=== PATIENT | male | born 1980 | race Hispanic/Latino ===

== ENCOUNTER 2018-02-17 11:30 | Inpatient (IN) | payer SELFPAY ==
[2018-02-17] MEDS ORDERED: ONDANSETRON 4 MG/2 ML VIAL ONE ×2 (11:59→16:21)
[2018-02-17] MEDS ORDERED: NA CHLORIDE 0.9% 1,000 ML ONE ×2 (12:00→14:14)
[2018-02-17] MEDS ORDERED: FAMOTIDINE 20 MG/2 ML VIAL IV ONE (12:00)
[2018-02-17] MEDS ORDERED: ACETAMINOPHEN 500 MG TAB ONE (12:13)
[2018-02-17 12:15] LABS: Absolute Lymphocytes (CBC) 0.9 K/uL (0.7-4.9); Absolute Monocytes 1.1 K/uL (0.1-1.3); Absolute Neutrophil 13.4 K/uL (1.8-8.0); Basophils % 0.2 % (0-1.3); Eosinophils % 0.2 % (0-4.4); Hematocrit 43.9 % (39.6-49.0); Lymphocytes % 5.8 % (15.3-44.8); MCH 30.1 pg (27.0-35.0); MCV 85.4 fL (80-100); MPV 9.1 fL (7.6-11.3); RBC Red Blood Cell Count 5.14 M/uL (4.33-5.43)
[2018-02-17 12:48] LABS: Albumin 3.5 g/dL (3.4-5.0); Bilirubin Direct 0.4 mg/dL (0-0.2); Magnesium 2.1 mg/dL (1.8-2.4); Potassium 3.5 mmol/L (3.5-5.1); Protein, Total 8.5 g/dL (6.4-8.2)
[2018-02-17 12:53] LABS: Platelet Estimate ADEQ
--- NOTE | 2018-02-17 12:53 | RAD REPORT ---
EXAM DESCRIPTION: CT - Abdomen Pelvis W Contrast - 02/17/2018 12:26 pm CLINICAL HISTORY: Chills, fever, body aches, nausea vomiting and diarrhea COMPARISON: CT abdomen and pelvis February 2012 TECHNIQUE: Biphasic, helical CT imaging of the abdomen and pelvis was performed following 100 ml non -ionic IV contrast. Oral contrast was given. All CT scans are performed using dose optimization technique as appropriate and may include automated exposure control or mA/KV adjustment according to patient size. FINDINGS: Lung base findings are detailed on separate CT chest report The liver, spleen, and pancreas show no focal findings. Liver shows diffuse fatty infiltration patter n. Gallbladder and biliary tree are normal. Symmetric renal function is seen with no hydronephrosis or suspicious renal mass. No pyelonephritis o r acute renal parenchymal process. No adrenal gland abnormality. Partially filled urinary bladder merrill ws no suspicious finding. Prostate gland and seminal vesicles within normal limits. No gastric dilatation or gastric wall thickening. No dilated large or small bowel. The appendix is no rmal. Nonspecific mild enteritis would still be possible. No free air, free fluid or inflammatory st randing. No bulky lymphadenopathy or mass. No omental thickening. Approximately 3 centimeter oval ma ss in the right inguinal canal is present possibly an undescended right testicle or reactive lymph no de. This is not clearly different from 2012. No suspicious bony findings. IMPRESSION: No appendicitis or acute GI process identifiable. Nonspecific enteritis can be present a nd occult on CT imaging. Fatty infiltration of the liver. Approximately 3 centimeter right inguinal canal mass has not clearly changed from 2012. This may repr esent an undescended testicle. Lung base findings are separately detailed in CT chest report.
[2018-02-17 12:54] LABS: Blood Morphology Comment NOT SEEN (NOT SEEN)
--- NOTE | 2018-02-17 12:57 | RAD REPORT ---
EXAM DESCRIPTION: CT - Thorax Wo Con - 02/17/2018 12:38 pm CLINICAL HISTORY: Abnormal chest film, abnormal CT examination COMPARISON: Portable chest February 17, CT abdomen and pelvis same date TECHNIQUE: Axial 5 mm thick images of the chest were obtained without IV contrast. There is remnant contrast within the circulation from the earlier contrast CT abdomen and pelvis study. All CT scans are performed using dose optimization technique as appropriate and may include automated exposure control or mA/KV adjustment according to patient size. FINDINGS: A moderately large area of consolidation is present involving a significant portion of the right lower lobe. Air bronchograms are present. Finding is typical for bacterial pneumonia. No cavit ation. No other area of consolidation. In the posterior right lower lobe (image 33/65) there is a 7 m illimeter noncalcified pulmonary nodule. A 6 millimeter pulmonary nodule is present anterior right rusty ng base near the minor fissure. No pleural thickening or pleural effusion. No pneumothorax. Fullness of the right hilum is believed to be reactive lymphadenopathy. Small subcarinal lymph node a lso believed be reactive. No gross aortic or pulmonary artery finding suspected. Assessment is limit ed in the absence of IV contrast. No pericardial effusion. No chest wall mass or abnormal axillary lymphadenopathy. IMPRESSION: Moderately large right lower lobe pneumonia. No cavitation or other complicating factor. Two 6-7 mm pulmonary nodules are present in the right lung field. The right lung mass has very typic al appearance for pneumonia. Malignant risk for this patient is likely very low. If there are clinica l or patient concerns, repeat CT chest examination in 6 months could be performed to monitor the pulm onary nodules.
--- NOTE | 2018-02-17 13:02 | RAD REPORT ---
EXAM DESCRIPTION: RAD - Chest Single View - 02/17/2018 12:10 pm CLINICAL HISTORY: Cough, fever COMPARISON: None. TECHNIQUE: AP portable chest image was obtained 1206 hours . FINDINGS: Lung volumes are low. Masslike density is present superimposed on the right hilum. With a history of fever and body aches, this is most likely pneumonia. Malignancy would not be expected in a patient this age. No cavitation. No failure or volume overload. Heart and vasculature are normal. No measurable pleural effusion and no pneumothorax. No acute bony abnormality seen. No acute aortic fin dings suspected. IMPRESSION: Right midlung field pneumonia.
[2018-02-17] MEDS ORDERED: KETOROLAC 30 MG/ML INJ ONE (13:07)
[2018-02-17] MEDS ORDERED: CEFTRIAXONE/SWI 1gm 1 GM/10 ML SYR ONE ×2 (13:35→14:38)
[2018-02-17] MEDS ORDERED: AZITHROMYCIN 500 MG/250 ML BAG ONE (13:35)
[2018-02-17 14:59] LABS: Urine Blood 1+ (NEG); Urine Glucose NEGATIVE (NEG); Urine Protein 1+ (NEG); Urine Specific Gravity <1.005 (1.005-1.030); Urine pH 5.5 (5.0-7.0)
--- NOTE | 2018-02-17 15:24 | ER ---
Nurse's Notes [facility] Name: All Meyer Age: 38 yrs Sex: Male : 1980 Arrival Date: 02/17/2018 Time: 11:32 Bed 18 Private MD: Diagnosis: Pneumonia due to other specified bacteria-Right Middle Lobe Presentation: 02/17 11:35 Presenting complaint: Patient states: N/V/D, chills, fever, body aches since . la1 Transition of care: patient was not received from another setting of care. Onset of symptoms was February 17, 2018. Risk Assessment: Do you want to hurt yourself or someone else? Patient reports no desire to harm self or others. Initial Sepsis Screen: Does the patient meet any 2 criteria? Temp <36.0*C (96.8*F)) or > 38.3*C (100.9*F). HR > 90 bpm. Does the patient have a suspected source of infection? No. Patient's initial sepsis screen is negative. Care prior to arrival: None. 11:35 Method Of Arrival: Ambulatory la1 11:35 Acuity: DEYA 3 la1 Historical: - Allergies: 11:36 No Known Allergies; la1 - Home Meds: 11:36 None [Active]; la1 - PMHx: 11:36 None; la1 - PSHx: 11:36 None; la1 - Immunization history:: Adult Immunizations up to date. - Social history:: Smoking status: Patient uses tobacco products, denies chronic smoking, but will smoke occasionally. - Ebola Screening: : No symptoms or risks identified at this time. Screenin:00 Abuse screen: Denies threats or abuse. Nutritional screening: Has had N/V for 3 or more em days. Tuberculosis screening: No symptoms or risk factors identified. Fall Risk None identified. Assessment: 12:00 General: Appears in no apparent distress. uncomfortable, Behavior is calm, cooperative. em Pain: Complains of pain in abdomen and head Pain currently is 8 out of 10 on a pain scale. Neuro: Level of Consciousness is awake, alert, obeys commands, Oriented to person, place, time, situation. Cardiovascular: Denies chest pain, Capillary refill < 3 seconds Patient's skin is warm and dry. Respiratory: Airway is patent Respiratory effort is even, unlabored, Respiratory pattern is regular, symmetrical. GI: Abdomen is round non-distended, Bowel sounds present X 4 quads. Abd is soft X 4 quads Abdomen is tender to palpation X 4 quads. Reports diarrhea, bloody stool, nausea, vomiting. : No signs and/or symptoms were reported regarding the genitourinary system. Derm: Skin is intact, Skin is pink, warm \T\ dry. Musculoskeletal: Capillary refill < 3 seconds, Range of motion: intact in all extremities. 12:05 General: The previous assessment is accurate, call light remains within reach. at ss bedside. . 12:20 Reassessment: pt wheeled to CT via wheelchair. em 13:00 Reassessment: Patient appears in no apparent distress at this time. Patient and/or em family updated on plan of care and expected duration. Pain level reassessed. Patient is alert, oriented x 3, equal unlabored respirations, skin warm/dry/pink. pt request something for pain, rates pain 9/10, provider notified. 14:30 Reassessment: Pt reports that pain has decreased after Toradol administration. Pt ss ambulated with steady gait to give urine specimen. still remains at bedside. Call light within reach. Awaiting antibiotics, IV fluids and disposition status. 15:29 Reassessment: Patient appears in no apparent distress at this time. Patient and/or em family updated on plan of care and expected duration. Pain level reassessed. Patient is alert, oriented x 3, equal unlabored respirations, skin warm/dry/pink. Dr. Pfeiffer at bedside, pending room assignment. 16:15 Reassessment: Patient appears in no apparent distress at this time. Patient and/or em family updated on plan of care and expected duration. Pain level reassessed. Patient is alert, oriented x 3, equal unlabored respirations, skin warm/dry/pink. rates pain 7/10, provider notified, new medication orders received. Vital Signs: 11:36 BP 124 / 73; Pulse 109; Resp 22; Temp 101.0; Pulse Ox 98% on R/A; Weight 113.4 kg; la1 Height 5 ft. 7 in. (170.18 cm); 13:00 BP 145 / 55; Pulse 88; Resp 22; Pulse Ox 98% on R/A; Pain 9/10; em 14:00 BP 114 / 56; Pulse 64; Resp 20; Temp 99.6(O); Pulse Ox 96% on R/A; Pain 0/10; em 15:30 BP 122 / 66; Pulse 65; Resp 19; Pulse Ox 96% on R/A; Pain 5/10; em 16:25 BP 118 / 67; Pulse 80; Resp 20; Temp 98.5(O); Pulse Ox 99% on R/A; Pain 7/10; em 11:36 Body Mass Index 39.16 (113.40 kg, 170.18 cm) la1 ED Course: 11:32 Patient arrived in ED. as 11:33 Ignacio Burt PA is PHCP. cp 11:33 Lev King MD is Attending Physician. cp 11:36 Triage completed. la1 11:37 Arm band placed on left wrist. la1 11:50 Mir Zapata LVN is Primary Nurse. em 12:00 Patient has correct armband on for positive identification. Placed in gown. Bed in low em position. Call light in reach. Adult w/ patient. 12:00 Initial lab(s) drawn, by me, sent to lab. Inserted saline lock: 20 gauge in right em antecubital area, using aseptic technique. Blood collected. 12:10 XRAY Chest (1 view) In Process Unspecified. EDMS 12:[address] via wheelchair. cw1 12:25 CT completed. Patient moved back from CT. cw1 12:27 CT Abd/Pelvis - W/Contrast In Process Unspecified. EDMS 12:38 Thorax Wo Con In Process Unspecified. EDMS 15:22 Deonte Pfeiffer DO is Hospitalizing Provider. cp 15:49 No provider procedures requiring assistance completed. em 16:26 Patient admitted, IV remains in place. em Administered Medications: 12:04 Drug: Tylenol 1000 mg Route: PO; la1 15:07 Follow up: Response: No adverse reaction; Temperature is decreased em 12:05 Drug: Zofran 4 mg Route: IVP; Site: right antecubital; la1 13:30 Follow up: Response: Nausea is decreased em 12:05 Drug: Pepcid 20 mg Route: IVP; Site: right antecubital; la1 13:30 Follow up: Response: No adverse reaction em 12:05 Drug: NS 0.9% 1000 ml Route: IV; Rate: 1 bolus; Site: right antecubital; la1 13:30 Follow up: IV Status: Completed infusion; IV Intake: 1000ml em 13:10 Drug: TORadol 30 mg Route: IVP; Site: right antecubital; ss 14:28 Follow up: Response: No adverse reaction; Pain is decreased ss 14:27 Not Given (Other Intervention Used): Rocephin - (cefTRIAXone) 2 grams IVPB once over 30 ss mins; (mix in 50 mL NS) start after obtaining blood cultures 14:32 Drug: NS 0.9% 1000 ml Route: IV; Rate: 1 bolus; Site: right antecubital; ss 16:00 Follow up: IV Status: Completed infusion; IV Intake: 1000ml em 14:38 Drug: Rocephin 2 grams Route: IV; Rate: calculated rate; Site: right antecubital; ss 15:32 Follow up: Response: No adverse reaction; IV Status: Completed infusion; IV Intake: 20mlem 14:43 Drug: Zithromax 500 mg Route: IVPB; Infused Over: 1 hrs; Site: right antecubital; ss 16:00 Follow up: Response: No adverse reaction; IV Status: Completed infusion; IV Intake: em 250ml 16:21 Drug: Zofran 4 mg Route: IVP; Site: right forearm; em 16:29 Follow up: Response: Other; medication administered, pt taken to the floor em 16:22 Drug: morphine 4 mg Route: IVP; Site: right antecubital; ss 16:30 Follow up: Response: Other; medication administered, pt taken to the floor em Intake: 13:30 IV: 1000ml; Total: 1000ml. em 15:32 IV: 20ml; Total: 1020ml. em 16:00 IV: 250ml; Total: 1270ml. em 16:00 IV: 1000ml; Total: 2270ml. em Outcome: 15:23 Decision to Hospitalize by Provider. cp 16:26 Admitted to Med/surg accompanied by tech, family with patient, via wheelchair, room em 229, with chart, Report called to BRYAN Saenz 16:26 Condition: good 16:26 Instructed on the need for admit, Demonstrated understanding of instructions. 16:34 Patient left the ED. em Signatures: Dispatcher [employer] EDMS Mir Zapata, [employer] SUPERINTENDENT [employer] SUPERINTENDENT em Isela Lindsey Shelby, RN RN Marbella Parker cw1 Jordan Lauren RN RN la1 Ignacio Burt PA PA cp Corrections: (The following items were deleted from the chart) 12:24 11:35 Initial Sepsis Screen: Does the patient meet any 2 criteria? Temp <36.0*C em (96.8*F)) or > 38.3*C (100.9*F). HR > 90 bpm. Does the patient have a suspected source of infection? No. Patient's initial sepsis screen is negative. la1
--- NOTE | 2018-02-17 15:24 | EDPHYS ---
Physician Documentation [facility] Name: All Meyer Age: 38 yrs Sex: Male : 1980 Arrival Date: 02/17/2018 Time: 11:32 Bed 18 Private MD: ED Physician Lev King HPI: 02/17 11:45 This 38 yrs old Male presents to ER via Ambulatory with complaints of cp Vomiting, Fever. 11:45 The patient presents to the emergency department with nausea, that is moderate, cp vomiting, that is intermittent, diarrhea, that is intermittent, abdominal pain. 11:45 Onset: The symptoms/episode began/occurred 3 day(s) ago. Associated signs and symptoms: cp Pertinent positives: fever, cough. Severity of symptoms: in the emergency department the symptoms are unchanged. Historical: - Allergies: 11:36 No Known Allergies; la1 - Home Meds: 11:36 None [Active]; la1 - PMHx: 11:36 None; la1 - PSHx: 11:36 None; la1 - Immunization history:: Adult Immunizations up to date. - Social history:: Smoking status: Patient uses tobacco products, denies chronic smoking, but will smoke occasionally. - Ebola Screening: : No symptoms or risks identified at this time. ROS: 11:50 Constitutional: Positive for fever. cp 11:50 Eyes: Negative for injury, pain, redness, and discharge. cp 11:50 ENT: Positive for sore throat, Negative for drainage from ear(s), ear pain, difficulty swallowing, difficulty handling secretions. 11:50 Cardiovascular: Negative for chest pain. 11:50 Respiratory: Positive for cough, Negative for shortness of breath, wheezing. 11:50 Abdomen/GI: Positive for abdominal pain, nausea, vomiting, and diarrhea, Negative for constipation, black/tarry stool, rectal bleeding. 11:50 : Negative for urinary symptoms. 11:50 Skin: Negative for cellulitis, rash. 11:50 Neuro: Negative for altered mental status, headache, syncope, near syncope. 11:50 All other systems are negative. Exam: 11:52 Constitutional: The patient appears in no acute distress, alert, awake, cp non-diaphoretic, well developed, well nourished, appears ill 11:52 Head/Face: Normocephalic, atraumatic. Eyes: Pupils equal round and reactive to light, cp extra-ocular motions intact. Lids and lashes normal. Conjunctiva and sclera are non-icteric and not injected. Cornea within normal limits. Periorbital areas with no swelling, redness, or edema. 11:52 ENT: External ear(s): are unremarkable, Ear canal(s): are normal, clear, TM's: bulging, is not appreciated, bilaterally, dullness, bilaterally, erythema, is not appreciated, bilaterally, Nose: is normal, Mouth: Lips: moist, Oral mucosa: moist, Posterior pharynx: Airway: no evidence of obstruction, patent, Tonsils: no enlargement, no exudate, Uvula: midline, swelling, is not appreciated, erythema, that is mild, exudate, is not appreciated. 11:52 Neck: External neck: is normal, ROM/movement: is normal, is supple, without pain, no range of motions limitations, no meningismus, no nuchal rigidity, Lymph nodes: no appreciated lymphadenopathy. 11:52 Chest/axilla: Inspection: normal, Palpation: is normal, no crepitus, no tenderness. 11:52 Cardiovascular: Rate: tachycardic, Rhythm: regular, Edema: is not appreciated, JVD: is not appreciated. 11:52 Respiratory: the patient does not display signs of respiratory distress, Respirations: labored breathing, is not present, intercostal retractions, are absent, shallow respirations, that is mild, tachypnea, is not appreciated, Breath sounds: decreased breath sounds, are not appreciated, stridor, is not appreciated, + upper airway congestion. wheezing: is not appreciated. 11:52 Abdomen/GI: Inspection: abdomen appears normal, Bowel sounds: active, all quadrants, Palpation: soft, in all quadrants, moderate abdominal tenderness, in the abdomen diffusely, rebound tenderness, is not appreciated, voluntary guarding, is elicited in the right upper quadrant and left lower quadrant, involuntary guarding, is not appreciated. 11:52 Back: CVA tenderness, is absent. 11:52 Skin: cellulitis, is not appreciated, no rash present. 11:52 Neuro: Orientation: to person, place \T\ time. Mentation: is normal, Cerebellar function: is grossly normal, Motor: moves all fours, strength is normal, Sensation: is normal. 16:00 : Male external genitalia: tenderness, is not appreciated, right testicle absent. Vital Signs: 11:36 BP 124 / 73; Pulse 109; Resp 22; Temp 101.0; Pulse Ox 98% on R/A; Weight 113.4 kg; la1 Height 5 ft. 7 in. (170.18 cm); 13:00 BP 145 / 55; Pulse 88; Resp 22; Pulse Ox 98% on R/A; Pain 9/10; em 14:00 BP 114 / 56; Pulse 64; Resp 20; Temp 99.6(O); Pulse Ox 96% on R/A; Pain 0/10; em 15:30 BP 122 / 66; Pulse 65; Resp 19; Pulse Ox 96% on R/A; Pain 5/10; em 16:25 BP 118 / 67; Pulse 80; Resp 20; Temp 98.5(O); Pulse Ox 99% on R/A; Pain 7/10; em 11:36 Body Mass Index 39.16 (113.40 kg, 170.18 cm) la1 MDM: 11:40 Patient medically screened. 15:05 Data reviewed: vital signs, nurses notes, lab test result(s), radiologic studies, CT cp scan, plain films. 15:05 Test interpretation: by ED physician or midlevel provider: plain radiologic studies. 02/17 11:37 Order name: Strep; Complete Time: 13:03 [facility] 02/17 11:37 Order name: Flu; Complete Time: 13:03 [facility] 02/17 11:48 Order name: Basic Metabolic Panel; Complete Time: 13:03 02/17 13:03 Interpretation: Normal except: NA 133; GLUC 141; GFR 69. 02/17 11:48 Order name: CBC with Diff; Complete Time: 13:03 02/17 13:03 Interpretation: Normal except: WBC 15.5; JOHN% 86.8; LYM% 5.8; NEUT A 13.4. 02/17 11:48 Order name: Creatinine for Radiology; Complete Time: 13:03 02/17 11:48 Order name: Hepatic Function; Complete Time: 13:03 02/17 13:04 Interpretation: Normal except: BILID 0.4; TP 8.5; GLOB 5.0; A/G 0.7. 02/17 11:48 Order name: Lipase; Complete Time: 13:03 cp 02/17 11:48 Order name: Magnesium; Complete Time: 13:03 cp 02/17 11:49 Order name: [facility] Screen Profile; Complete Time: 13:03 cp 02/17 12:06 Order name: Throat Culture EDMS 02/17 12:54 Order name: Manual Differential; Complete Time: 13:03 EDMS 02/17 13:06 Order name: Blood Culture* cp 02/17 13:06 Order name: Lactate; Complete Time: 14:59 cp 02/17 13:06 Order name: Procalcitonin; Complete Time: 14:59 cp 02/17 15:00 Interpretation: Abnormal: Procalcitonin 0.74. 02/17 14:29 Order name: Urine Dipstick--Ancillary (enter results) la1 02/17 14:30 Order name: Urine Dipstick-Ancillary; Complete Time: 15:06 EDMS 02/17 15:43 Order name: T4 Free EDMS 02/17 15:43 Order name: Thyroid Stimulating Hormone EDMS 02/17 15:43 Order name: Urinalysis EDMS 02/17 15:43 Order name: Basic Metabolic Panel EDMS 02/17 15:43 Order name: Basic Metabolic Panel EDMS 02/17 15:43 Order name: Basic Metabolic Panel EDMS 02/17 15:43 Order name: Basic Metabolic Panel EDMS 02/17 15:43 Order name: CBC with Automated Diff EDMS 02/17 15:43 Order name: CBC with Automated Diff EDMS 02/17 15:43 Order name: CBC with Automated Diff EDMS 02/17 15:43 Order name: CBC with Automated Diff EDMS 02/17 15:43 Order name: Magnesium EDMS 02/17 15:43 Order name: Magnesium EDMS 02/17 15:43 Order name: Magnesium EDMS 02/17 11:48 Order name: IV Saline Lock; Complete Time: 12:06 02/17 11:48 Order name: Labs collected and sent; Complete Time: 12:06 cp 02/17 11:48 Order name: Urine Dipstick-Ancillary (obtain specimen); Complete Time: 14:28 cp 02/17 11:48 Order name: CT Abd/Pelvis - W/Contrast; Complete Time: 13:03 02/17 11:49 Order name: XRAY Chest (1 view); Complete Time: 13:03 cp 02/17 12:33 Order name: Thorax Wo Con; Complete Time: 13:03 EDMS 02/17 15:00 Order name: PO challenge; Complete Time: 15:41 cp 02/17 15:43 Order name: Heart Healthy EDMS 02/17 15:43 Order name: Magnesium EDMS 02/17 15:43 Order name: Chest Pa And Lat (2 Views) EDMS 02/17 15:43 Order name: Chest Pa And Lat (2 Views) EDMS Administered Medications: 12:04 Drug: Tylenol 1000 mg Route: PO; la1 15:07 Follow up: Response: No adverse reaction; Temperature is decreased em 12:05 Drug: Zofran 4 mg Route: IVP; Site: right antecubital; la1 13:30 Follow up: Response: Nausea is decreased em 12:05 Drug: Pepcid 20 mg Route: IVP; Site: right antecubital; la1 13:30 Follow up: Response: No adverse reaction em 12:05 Drug: NS 0.9% 1000 ml Route: IV; Rate: 1 bolus; Site: right antecubital; la1 13:30 Follow up: IV Status: Completed infusion; IV Intake: 1000ml em 13:10 Drug: TORadol 30 mg Route: IVP; Site: right antecubital; ss 14:28 Follow up: Response: No adverse reaction; Pain is decreased ss 14:27 Not Given (Other Intervention Used): Rocephin - (cefTRIAXone) 2 grams IVPB once over 30 ss mins; (mix in 50 mL NS) start after obtaining blood cultures 14:32 Drug: NS 0.9% 1000 ml Route: IV; Rate: 1 bolus; Site: right antecubital; ss 16:00 Follow up: IV Status: Completed infusion; IV Intake: 1000ml em 14:38 Drug: Rocephin 2 grams Route: IV; Rate: calculated rate; Site: right antecubital; ss 15:32 Follow up: Response: No adverse reaction; IV Status: Completed infusion; IV Intake: 20mlem 14:43 Drug: Zithromax 500 mg Route: IVPB; Infused Over: 1 hrs; Site: right antecubital; ss 16:00 Follow up: Response: No adverse reaction; IV Status: Completed infusion; IV Intake: em 250ml 16:21 Drug: Zofran 4 mg Route: IVP; Site: right forearm; em 16:29 Follow up: Response: Other; medication administered, pt taken to the floor em 16:22 Drug: morphine 4 mg Route: IVP; Site: right antecubital; ss 16:30 Follow up: Response: Other; medication administered, pt taken to the floor em Disposition: 16:41 Co-signature as Attending Physician, Lev King MD I agree with the assessment and kdr plan of care. Disposition: 02/17/18 15:23 Hospitalization ordered by Deonte Pfeiffer for Observation. Preliminary diagnosis is Pneumonia due to other specified bacteria - Right Middle Lobe. - Bed requested for Telemetry/MedSurg (Inpatient). - Status is Observation. em - Condition is Stable. - Problem is new. - Symptoms have improved. UTI on Admission? No Signatures: Dispatcher [employer] Raya Montanez RN RN dw Lev King MD MD [facility] Mir Zapata, JACKER JACKER em Nellie Mcgovern RN RN Jordan Lauren RN RN la1 Ignacio Burt PA PA cp Corrections: (The following items were deleted from the chart) 15:41 15:23 Hospitalization Ordered by Deonte Pfeiffer DO for Inpatient Admission. Preliminary cp diagnosis is Pneumonia due to other specified bacteria - Right Middle Lobe. Bed requested for Telemetry/MedSurg (Inpatient). Status is Inpatient Admission. Condition is Stable. Problem is new. Symptoms have improved. UTI on Admission? No. cp 15:59 15:41 02/17/2018 15:23 Hospitalization Ordered by Deonte Pfeiffer DO for Observation. dw Preliminary diagnosis is Pneumonia due to other specified bacteria - Right Middle Lobe. Bed requested for Telemetry/MedSurg (Inpatient). Status is Observation. Condition is Stable. Problem is new. Symptoms have improved. UTI on Admission? No. cp 16:34 15:59 02/17/2018 15:23 Hospitalization Ordered by Deonte Pfeiffer DO for Observation. em Preliminary diagnosis is Pneumonia due to other specified bacteria - Right Middle Lobe. Bed requested for Telemetry/MedSurg (Inpatient). Status is Observation. Condition is Stable. Problem is new. Symptoms have improved. UTI on Admission? No. dw
[2018-02-17] MEDS ORDERED: ALBUTEROL 2.5 MG/3 ML NEB SOL NEB PRN (15:36)
[2018-02-17] MEDS ORDERED: BENZONATATE 100 MG CAP PO PRN (15:36)
[2018-02-17] MEDS ORDERED: ONDANSETRON 4 MG/2 ML VIAL IV PRN (15:36)
[2018-02-17] MEDS ORDERED: IPRATROPIUM BROM 0.5MG/2.5ML NEB PRN (15:36)
--- NOTE | 2018-02-17 15:51 | P.HP ---
Certification for Inpatient Patient admitted to: Observation With expected LOS: <2 Midnights Patient will require the following post-hospital care: None Practitioner: I am a practitioner with admitting privileges, knowledge of patient current condition, hospital course, and medical plan of care. Services: Services provided to patient in accordance with Admission requirements found in Title 42 Section 412.3 of the Code of Federal Regulations Patient History Date of Service: 02/17/18 Primary Care Provider: None Reason for admission: Cough, shortness of breath History of Present Illness: 38-year-old male presented to the emergency room with cough, shortness of breath and fatigue. The patient reports that he had cough, congestion, shortness of breath since . He still went to work. He continued to have more symptoms of shortness of breath. Over the last day he has been having fever, chills, body shakes. He has felt very tired. He decided to come to the emergency room for evaluation. In the ER patient evaluated. Patient had a fever in the emergency room he was slightly tachycardic. White count elevated at 15.5. Sodium 133, BUN of 14, creatinine 1.2 with a GFR of 69. Pro calcitonin 0.74 with a lactic acid within normal range. Urinalysis unremarkable. Strep test negative. Influenza test negative. Oxygen saturations around 99%. CT scan shows moderate to large to right lower lobe pneumonia. 2- 6 cm pulmonary nodules are present in the right lung field. This is likely typical for pneumonia. CT abdomen shows fatty liver. 3 cm right inguinal mass likely undescended testicle noted. Patient was treating emergency room. Patient admitted for further evaluation. When I saw the patient ER, he appeared comfortable. Patient reports history of tobacco use and occasional alcohol use. He has no other major medical problems. He has been working 6 over the last couple of days. Allergies No Known Allergies Allergy (Unverified 12/14/11 02:02) Home medications list reviewed: Yes - Past Medical/Surgical History Diabetic: No -: Tobacco use -: Alcohol use Past Surgical History: Patient denies surgical history Psychosocial/ Personal History: He is . Has 3 children. 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 - Family History Mother -: Diabetes, Kidney disease - Social History Smoking Status: Light Tobacco smoker (1-9 cigarettes/day) Counseled patient to stop smoking for: less than 10 minutes Smoking therapy provided: Yes Patient receptive to therapy: Yes Alcohol use: Yes CD- Drugs: No Caffeine use: No Place of Residence: Home Review of Systems General: Fever, Chills, Weakness, Malaise, As per HPI Eyes: Unremarkable ENT: Nose Congestion, As per HPI Respiratory: Cough, Shortness of Breath, SOB with Excertion, As per HPI Cardiovascular: Unremarkable Gastrointestinal: Nausea, As per HPI Genitourinary: Unremarkable Musculoskeletal: Back Pain, As per HPI Integumentary: Unremarkable Neurological: Unremarkable Lymphatics: Unremarkable Physical Examination - Physical Exam General: Alert, In no apparent distress, Oriented x3, Cooperative HEENT: Atraumatic, Normocephalic, PERRLA, Other (Nasal congestion noted), EOMI Neck: Supple, No Thyromegaly Respiratory: Crackles/rales (Crackles to the right base) Cardiovascular: Regular rate/rhythm Gastrointestinal: Normal bowel sounds, Soft and benign, Non-distended, No tenderness, No masses, No rebound, No guarding Musculoskeletal: No erythema, No tenderness, No warmth Integumentary: No tenderness/swelling, No erythema, No warmth, No cyanosis Neurological: Normal speech, Normal strength at 5/5 x4 extr, Normal tone, Normal affect - Studies Laboratory Data (last 24 hrs) 02/17/18 12:00: Creatinine 1.20 02/17/18 12:00: WBC 15.5 H, Hgb 15.5, Hct 43.9, Plt Count 195 02/17/18 12:00: Sodium 133 L, Potassium 3.5, BUN 14, Creatinine 1.20, Glucose 141 H, Magnesium 2.1, Total Bilirubin 1.0, AST 19, ALT 32, Alkaline Phosphatase 111, Lipase 148 Microbiology Data (last 24 hrs): 02/17/18 11:33 Nasopharnyx Influenza Type A Antigen Screen - Final 02/17/18 11:33 Nasopharnyx Influenza Type B Antigen Screen - Final 02/17/18 11:33 Throat Group A Streptococcus Rapid Screen - Final Assessment and Plan - Plan Impression: Cough, shortness of breath with fever secondary to moderate to large right lower lobe pneumonia Hyponatremia likely related to dehydration Renal insufficiency likely related to dehydration Pulmonary nodules likely related to pneumonia Fatty liver 3 cm right inguinal mass likely undescended testicle Tobacco and alcohol use Plan: Cough, shortness of breath with fever secondary to moderate to large right lower lobe pneumonia: Patient will be admitted. Will maintain sats above 90%. Will start Rocephin and Zithromax IV. Will continue with IV fluids. Will provide medication for cough, congestion. Will provide albuterol for shortness of breath. Blood cultures obtained. Will recheck lab in the morning. Will recheck chest x-ray in the morning. Will reassess tomorrow. Possible discharge in the next 1-2 days. Hyponatremia likely related to dehydration: Continue with IV fluids. Will monitor closely Renal insufficiency likely related to dehydration: Continue with IV fluids. Will monitor closely Pulmonary nodules likely related to pneumonia: Likely related to pneumonia. Recommendation to recheck CT scan in 3-6 months to monitor resolution. Fatty liver with obesity: Will address lifestyle modification education. 3 cm right inguinal mass likely undescended testicle: I will reassess tomorrow. If undescended testicles noted patient will likely need to see urology as an outpatient to further evaluate. Tobacco and alcohol use: Tobacco and alcohol cessation addressed in detail. Discharge Plan: Home Plan to discharge in: 24 Hours - Advance Directives Does patient have a Living Will: No Does patient have a Durable POA for Healthcare: No - Code Status/Comfort Care Code Status Assessed: Yes (Patient full code) Time Spent Managing Pts Care (In Minutes): 55
[2018-02-17] MEDS ORDERED: MORPHINE 4 MG/ML SYR ONE (16:20)
[2018-02-17] MEDS: NA CHLORIDE 0.9% 1,000 ML IV SCH (17:30)
[2018-02-17 17:33] VITALS: BMI 40.7
[2018-02-17] MEDS: ENOXAPARIN 40 MG/0.4 ML SQ SCH (17:35)
[2018-02-17] MEDS ORDERED: INFLUENZA VACCINE (for 3y+) 0.5 ML DOSE IMVAC ONE (18:00)
[2018-02-17] MEDS: ACETAMINOPHEN 500 MG TAB PO PRN ×2 (19:30→23:20)
[2018-02-17] MEDS: GUAIFENESIN 600 MG SA TAB PO SCH (20:52)
[2018-02-17] MEDS: FAMOTIDINE 20 MG TAB PO SCH (20:52)
[2018-02-18] MEDS: NA CHLORIDE 0.9% 1,000 ML IV SCH ×3 (01:09→18:21)
[2018-02-18] MEDS: ACETAMINOPHEN 500 MG TAB PO PRN ×4 (04:00→20:09)
[2018-02-18 05:43] LABS: Absolute Lymphocytes (CBC) 0.6 K/uL (0.7-4.9); Absolute Monocytes 1.1 K/uL (0.1-1.3); Absolute Neutrophil 9.6 K/uL (1.8-8.0); Basophils % 0.3 % (0-1.3); Hematocrit 37.5 % (39.6-49.0); Lymphocytes % 5.7 % (15.3-44.8); MCH 29.7 pg (27.0-35.0); MCV 85.8 fL (80-100); MPV 9.1 fL (7.6-11.3); Monocytes % 9.3 % (3.3-12.3); RBC Red Blood Cell Count 4.37 M/uL (4.33-5.43)
[2018-02-18 06:09] LABS: BUN Blood Urea Nitrogen 12 mg/dL (7-18); Bicarbonate 22 mmol/L (21-32); Glucose Level 126 mg/dL (74-106); Magnesium 2.1 mg/dL (1.8-2.4); Potassium 3.2 mmol/L (3.5-5.1); Sodium Level 133 mmol/L (136-145); Thyroid Stimulating Hormone 0.865 uIU/mL (0.360-3.740)
--- NOTE | 2018-02-18 08:31 | RAD REPORT ---
EXAM DESCRIPTION: Luisa Russo And Fred (2 Views)02/18/2018 7:02 am CLINICAL HISTORY: Cough COMPARISON: February 17 FINDINGS: No change has occurred in the right lower lobe consolidation Left lung appears clear. Heart is normal size IMPRESSION: No change in the right lower lobe consolidation. This should be followed until it is cl ear to exclude post obstructive process/underlying mass
[2018-02-18] MEDS: FAMOTIDINE 20 MG TAB PO SCH ×2 (08:34→20:09)
[2018-02-18] MEDS: ENOXAPARIN 40 MG/0.4 ML SQ SCH (08:34)
[2018-02-18] MEDS: GUAIFENESIN 600 MG SA TAB PO SCH ×2 (08:34→20:09)
[2018-02-18] MEDS ORDERED: AZITHROMYCIN IV 250 MG in NA CHLORIDE 0.9% 250 ML IVPB SCH (09:00)
[2018-02-18] MEDS ORDERED: CEFTRIAXONE/SWI 1gm 1 GM/10 ML SYR IVP SCH (09:00)
[2018-02-18] MEDS: IBUPROFEN 400 MG TAB PO PRN ×2 (10:26→18:20)
--- NOTE | 2018-02-18 11:27 | P.PN ---
Subjective Date of Service: 02/18/18 Primary Care Provider: None Chief Complaint: Cough, shortness of breath Subjective: Other (Patient fever last night. T-max 104.1. Still with increased fatigue.) Physical Examination - Vital Signs Temperature: 98.5 F Blood Pressure: 109/59 Pulse: 83 Respirations: 17 Pulse Ox (%): 98 - Physical Exam General: Alert, In no apparent distress, Cooperative, Other (Increased fatigue noted.) HEENT: Atraumatic Neck: Supple Respiratory: Diminished (Slightly diminished to the right side), Crackles/rales (Slightly diminished to the right side) Cardiovascular: Normal pulses, Regular rate/rhythm Gastrointestinal: Normal bowel sounds, Soft and benign, Non-distended, No tenderness, No masses, No rebound, No guarding Musculoskeletal: No erythema, No tenderness, No warmth Integumentary: No erythema, No warmth, No cyanosis, Other (Patient feels warm.) Neurological: Normal speech, Normal strength at 5/5 x4 extr, Normal tone, Normal affect External genitalia: Other (Right undescended testicle) - Studies Laboratory Data (last 24 hrs) 02/17/18 12:00: Creatinine 1.20 02/17/18 12:00: WBC 15.5 H, Hgb 15.5, Hct 43.9, Plt Count 195 02/17/18 12:00: Sodium 133 L, Potassium 3.5, BUN 14, Creatinine 1.20, Glucose 141 H, Magnesium 2.1, Total Bilirubin 1.0, AST 19, ALT 32, Alkaline Phosphatase 111, Lipase 148 Microbiology Data (last 24 hrs): 02/17/18 11:33 Nasopharnyx Influenza Type A Antigen Screen - Final 02/17/18 11:33 Nasopharnyx Influenza Type B Antigen Screen - Final 02/17/18 11:33 Throat Group A Streptococcus Rapid Screen - Final Medications List Reviewed: Yes Assessment & Plan Discharge Plan: Home Plan to discharge in: 24 Hours Physician Review Additional Text: Impression: Cough, shortness of breath with fever secondary to moderate to large right lower lobe pneumonia Hyponatremia likely related to dehydration Hypokalemia Renal insufficiency likely related to dehydration Pulmonary nodules likely related to pneumonia Fatty liver 3 cm right inguinal mass secondary to right undescended testicle Tobacco and alcohol use Plan: Cough, shortness of breath with fever secondary to moderate to large right lower lobe pneumonia: Patient continues to improve slowly. Still with increased fatigue. T-max 104.1. Will ambulate patient today. Patient needs to remain in hospital due to slow response. Will consider discharge once without fever for at least 24 hr. Continue antibiotic therapy. Will make adjustments. Encourage oral intake. Continue IV fluids. Provide incentive spirometer. Hyponatremia likely related to dehydration: Continue with IV fluids. Will monitor and adjust closely Hypokalemia: Will monitor and adjust appropriately. Replacement protocol in place. Renal insufficiency likely related to dehydration: Continue with IV fluids. Will monitor closely Pulmonary nodules likely related to pneumonia: Likely related to pneumonia. Recommendation to recheck CT scan in 3-6 months to monitor resolution. Fatty liver with obesity: Will address lifestyle modification education. BMI 40.7 3 cm right inguinal mass secondary to right undescended testicle: Patient reports history of undescended testicle. Recommend for the patient follow up with urology as an outpatient to evaluate and treat. Tobacco and alcohol use: Tobacco and alcohol cessation continues to be addressed. Time Spent Managing Pts Care (In Minutes): 55
[2018-02-18] MEDS ORDERED: POTASSIUM CL SA 10 MEQ TAB PO ONE (13:00)
[2018-02-19] MEDS: NA CHLORIDE 0.9% 1,000 ML IV SCH ×3 (02:23→20:10)
[2018-02-19 06:02] LABS: Absolute Lymphocytes (CBC) 0.6 K/uL (0.7-4.9); Absolute Monocytes 0.7 K/uL (0.1-1.3); Absolute Neutrophil 7.5 K/uL (1.8-8.0); Basophils % 0.3 % (0-1.3); Eosinophils % 0.7 % (0-4.4); Hematocrit 37.1 % (39.6-49.0); Lymphocytes % 6.9 % (15.3-44.8); MCH 30.4 pg (27.0-35.0); MCV 85.7 fL (80-100); MPV 9.2 fL (7.6-11.3); RBC Red Blood Cell Count 4.32 M/uL (4.33-5.43)
[2018-02-19 06:24] LABS: BUN Blood Urea Nitrogen 10 mg/dL (7-18); Bicarbonate 28 mmol/L (21-32); Glucose Level 125 mg/dL (74-106); Magnesium 2.1 mg/dL (1.8-2.4); Potassium 3.6 mmol/L (3.5-5.1); Sodium Level 134 mmol/L (136-145)
[2018-02-19] MEDS ORDERED: POTASSIUM CL SA 10 MEQ TAB PO ONE (08:07)
[2018-02-19] MEDS: ACETAMINOPHEN 500 MG TAB PO PRN (08:14)
[2018-02-19] MEDS: Levofloxacin 750mg IV 750 MG/150 ML BAG IV SCH (09:15)
[2018-02-19] MEDS: GUAIFENESIN 600 MG SA TAB PO SCH ×2 (09:16→21:45)
[2018-02-19] MEDS: FAMOTIDINE 20 MG TAB PO SCH ×2 (09:17→21:45)
[2018-02-19] MEDS: ENOXAPARIN 40 MG/0.4 ML SQ SCH (09:18)
[2018-02-19] MEDS: IBUPROFEN 400 MG TAB PO PRN (09:31)
--- NOTE | 2018-02-19 12:38 | P.PN ---
Subjective Date of Service: 02/19/18 Primary Care Provider: None Chief Complaint: Cough, shortness of breath Subjective: Improving (Patient is slowly improving but still with elevated temperature. Somewhat fatigued noted) Physical Examination - Vital Signs Temperature: 101.9 F Blood Pressure: 113/57 Pulse: 89 Respirations: 20 Pulse Ox (%): 95 - Physical Exam General: Alert, In no apparent distress, Oriented x3, Cooperative HEENT: Atraumatic Neck: Supple Respiratory: Other (Better air movement bilateral) Cardiovascular: Normal pulses, Regular rate/rhythm Gastrointestinal: Normal bowel sounds, Soft and benign, Non-distended, No tenderness, No masses, No rebound, No guarding Musculoskeletal: No erythema, No tenderness, No warmth Integumentary: No tenderness/swelling, No erythema, No warmth, No cyanosis Neurological: Normal speech, Normal strength at 5/5 x4 extr, Normal tone, Normal affect Other Physical/Emotional Findings: T-max 101.9 - Studies Microbiology Data (last 24 hrs): 02/17/18 11:33 Throat Culture & Sensitivity - Final Medications List Reviewed: Yes Assessment & Plan Discharge Plan: Home Plan to discharge in: 24 Hours Physician Review Additional Text: Impression: Cough, shortness of breath with fever secondary to moderate to large right lower lobe pneumonia Hyponatremia likely related to dehydration Diarrhea Hypokalemia Renal insufficiency likely related to dehydration Pulmonary nodules likely related to pneumonia Fatty liver 3 cm right inguinal mass secondary to right undescended testicle Tobacco and alcohol use Plan: Cough, shortness of breath with fever secondary to moderate to large right lower lobe pneumonia: Patient continues to improve slowly. T-max still elevated. Will discontinue Rocephin/Zithromax. Will change to Levaquin for broader coverage. White count improved. Encourage ambulation. Still not ready for discharge. Likely discharge in the next 1-2 days. Will continue with IV fluids. Will monitor closely. Will continue with incentive spirometer. Diarrhea: Will check for C diff colitis. Will monitor closely. Hyponatremia likely related to dehydration: Continue with IV fluids. Will monitor and adjust closely Hypokalemia: Will monitor and adjust appropriately. Replacement protocol in place. Renal insufficiency likely related to dehydration: Continue with IV fluids. Will monitor closely Pulmonary nodules likely related to pneumonia: Likely related to pneumonia. Recommendation to recheck CT scan in 3-6 months to monitor resolution. Fatty liver with obesity: Will address lifestyle modification education. BMI 40.7 3 cm right inguinal mass secondary to right undescended testicle: Patient reports history of undescended testicle. Recommend for the patient follow up with urology as an outpatient to evaluate and treat. Tobacco and alcohol use: Tobacco and alcohol cessation continues to be addressed. Time Spent Managing Pts Care (In Minutes): 55
[2018-02-20] MEDS: NA CHLORIDE 0.9% 1,000 ML IV SCH (04:54)
[2018-02-20 05:23] VITALS: O2SAT 97
[2018-02-20 05:49] LABS: Absolute Lymphocytes (CBC) 0.7 K/uL (0.7-4.9); Absolute Monocytes 0.7 K/uL (0.1-1.3); Basophils % 0.4 % (0-1.3); Eosinophils % 2.1 % (0-4.4); Hematocrit 36.1 % (39.6-49.0); Lymphocytes % 8.1 % (15.3-44.8); MCH 30.4 pg (27.0-35.0); MCV 85.5 fL (80-100); Monocytes % 8.4 % (3.3-12.3); RBC Red Blood Cell Count 4.23 M/uL (4.33-5.43)
[2018-02-20] MEDS: ACETAMINOPHEN 500 MG TAB PO PRN (05:57)
[2018-02-20 06:06] LABS: BUN Blood Urea Nitrogen 9 mg/dL (7-18); Bicarbonate 23 mmol/L (21-32); Glucose Level 124 mg/dL (74-106); Magnesium 2.3 mg/dL (1.8-2.4); Potassium 3.5 mmol/L (3.5-5.1); Sodium Level 136 mmol/L (136-145)
[2018-02-20] MEDS: Levofloxacin 750mg IV 750 MG/150 ML BAG IV SCH (08:31)
[2018-02-20] MEDS: FAMOTIDINE 20 MG TAB PO SCH (08:31)
[2018-02-20] MEDS: GUAIFENESIN 600 MG SA TAB PO SCH (08:31)
[2018-02-20] MEDS: ENOXAPARIN 40 MG/0.4 ML SQ SCH (08:31)
[2018-02-20 09:09] VITALS: TEMP 97.8
--- NOTE | 2018-02-20 10:36 | P.DS ---
Admission Date: 02/18/18 Discharge Date: 02/20/18 Primary Care Provider: None Disposition: ROUTINE DISCHARGE Discharge Condition: GOOD Reason for Admission: Cough, shortness of breath Consultations: none Procedures: CT chest: COMPARISON: Portable chest February 17, CT abdomen and pelvis same date TECHNIQUE: Axial 5 mm thick images of the chest were obtained without IV contrast. There is remnant contrast within the circulation from the earlier contrast CT abdomen and pelvis study. All CT scans are performed using dose optimization technique as appropriate and may include automated exposure control or mA/KV adjustment according to patient size. FINDINGS: A moderately large area of consolidation is present involving a significant portion of the right lower lobe. Air bronchograms are present. Finding is typical for bacterial pneumonia. No cavitation. No other area of consolidation. In the posterior right lower lobe (image 33/65) there is a 7 millimeter noncalcified pulmonary nodule. A 6 millimeter pulmonary nodule is present anterior right lung base near the minor fissure. No pleural thickening or pleural effusion. No pneumothorax. Fullness of the right hilum is believed to be reactive lymphadenopathy. Small subcarinal lymph node also believed be reactive. No gross aortic or pulmonary artery finding suspected. Assessment is limited in the absence of IV contrast. No pericardial effusion. No chest wall mass or abnormal axillary lymphadenopathy. IMPRESSION: Moderately large right lower lobe pneumonia. No cavitation or other complicating factor. Two 6-7 mm pulmonary nodules are present in the right lung field. The right lung mass has very typical appearance for pneumonia. Malignant risk for this patient is likely very low. If there are clinical or patient concerns, repeat CT chest examination in 6 months could be performed to monitor the pulmonary nodules. CT abdomen: COMPARISON: CT abdomen and pelvis February 2012 TECHNIQUE: Biphasic, helical CT imaging of the abdomen and pelvis was performed following 100 ml non-ionic IV contrast. Oral contrast was given. All CT scans are performed using dose optimization technique as appropriate and may include automated exposure control or mA/KV adjustment according to patient size. FINDINGS: Lung base findings are detailed on separate CT chest report The liver, spleen, and pancreas show no focal findings. Liver shows diffuse fatty infiltration pattern. Gallbladder and biliary tree are normal. Symmetric renal function is seen with no hydronephrosis or suspicious renal mass. No pyelonephritis or acute renal parenchymal process. No adrenal gland abnormality. Partially filled urinary bladder shows no suspicious finding. Prostate gland and seminal vesicles within normal limits. No gastric dilatation or gastric wall thickening. No dilated large or small bowel. The appendix is normal. Nonspecific mild enteritis would still be possible. No free air, free fluid or inflammatory stranding. No bulky lymphadenopathy or mass. No omental thickening. Approximately 3 centimeter oval mass in the right inguinal canal is present possibly an undescended right testicle or reactive lymph node. This is not clearly different from 2012. No suspicious bony findings. IMPRESSION: No appendicitis or acute GI process identifiable. Nonspecific enteritis can be present and occult on CT imaging. Fatty infiltration of the liver. Approximately 3 centimeter right inguinal canal mass has not clearly changed from 2012. This may represent an undescended testicle. Impression: Cough, shortness of breath with fever secondary to moderate to large right lower lobe pneumonia Hyponatremia likely related to dehydration Diarrhea, resolved Hypokalemia Renal insufficiency likely related to dehydration 2 Pulmonary nodules to right lung field likely related to pneumonia Fatty liver 3 cm right inguinal mass secondary to right undescended testicle Tobacco and alcohol use Brief History of Present Illness: 38-year-old male presented to the emergency room with cough, shortness of breath and fatigue. The patient reports that he had cough, congestion, shortness of breath since . He still went to work. He continued to have more symptoms of shortness of breath. Over the last day he has been having fever, chills, body shakes. He has felt very tired. He decided to come to the emergency room for evaluation. In the ER patient evaluated. Patient had a fever in the emergency room he was slightly tachycardic. White count elevated at 15.5. Sodium 133, BUN of 14, creatinine 1.2 with a GFR of 69. Pro calcitonin 0.74 with a lactic acid within normal range. Urinalysis unremarkable. Strep test negative. Influenza test negative. Oxygen saturations around 99%. CT scan shows moderate to large to right lower lobe pneumonia. 2- 6 cm pulmonary nodules are present in the right lung field. This is likely typical for pneumonia. CT abdomen shows fatty liver. 3 cm right inguinal mass likely undescended testicle noted. Patient was treating emergency room. Patient admitted for further evaluation. When I saw the patient ER, he appeared comfortable. Patient reports history of tobacco use and occasional alcohol use. He has no other major medical problems. He has been working 6 over the last couple of days. Hospital Course: Patient presented with cough, shortness of breath and fever. Patient evaluated in the emergency room. Patient found to have moderate to large right lower lobe pneumonia. Patient was admitted for treatment. Patient was not hypoxic. Initial influenza test and strep test unremarkable. During his stay antibiotics were adjusted. Blood cultures negative. Repeat x-ray shows stability. At discharge he is without any significant shortness of breath, cough. Patient ambulating well. At discharge he will continue with Levaquin 500 mg 1 pill daily for 7 days. Patient will also be prescribed Pro air 2 puffs 3 times a day as needed for shortness of breath and Tessalon Perles 100 mg 1 pill 3 times a day as needed for cough. Recommendation is for the patient to follow up with pulmonology in 1-2 weeks to follow up this hospitalization. Recommendation to recheck chest x-ray in 2-4 weeks to monitor resolution. CT scan also revealed 2 pulmonary nodules in the right lung field. This is likely related to the pneumonia. Recommendation to recheck CT scan in 3-6 months to monitor resolution. Recommendation for the patient follow up with pulmonology to further evaluate. Patient had electrolyte abnormalities including hyponatremia and hypokalemia likely related to dehydration. This improved. Recommendation to recheck lab- BMP in 1 week to monitor his progress. CT scan showed a 3 cm right inguinal mass secondary to a right undescended testicle. This has been present for quite some time as per patient. Recommendation is for the patient follow up with urology as an outpatient to further evaluate and treat. Patient has fatty liver with obesity. BMI 40.7. Lifestyle modification education and weight loss recommended. Patient may follow up with GI as an outpatient to further monitor. Tobacco and alcohol cessation education will be provided at discharge. Patient may return to work after next Sunday. Vital Signs/Physical Exam: Temp Pulse Resp BP Pulse Ox 97.8 F 64 20 85/47 L 97 02/20/18 08:00 02/20/18 08:00 02/20/18 08:00 02/20/18 08:00 02/20/18 08:00 General: Alert, In no apparent distress, Oriented x3, Cooperative HEENT: Atraumatic, Mucous membr. moist/pink Neck: Supple, No Thyromegaly Respiratory: Clear to auscultation bilaterally, Normal air movement Cardiovascular: Normal pulses, Regular rate/rhythm Gastrointestinal: Normal bowel sounds, Soft and benign, Non-distended, No tenderness, No masses, No rebound, No guarding Musculoskeletal: No erythema, No tenderness, No warmth Integumentary: No tenderness/swelling, No erythema, No warmth, No cyanosis Neurological: Normal speech, Normal strength at 5/5 x4 extr, Normal tone, Normal affect External genitalia: Other (Right undescended testicle) Laboratory Data at Discharge: WBC 8.7 K/uL (4.3-10.9) 02/20/18 05:30 Hgb 12.8 g/dL (13.6-17.9) L 02/20/18 05:30 Hct 36.1 % (39.6-49.0) L 02/20/18 05:30 Plt Count 213 K/uL (152-406) 02/20/18 05:30 Sodium 136 mmol/L (136-145) 02/20/18 05:30 Potassium 3.5 mmol/L (3.5-5.1) 02/20/18 05:30 BUN 9 mg/dL (7-18) 02/20/18 05:30 Creatinine 0.80 mg/dL (0.55-1.3) 02/20/18 05:30 Glucose 124 mg/dL (74-106) H 02/20/18 05:30 Magnesium 2.3 mg/dL (1.8-2.4) 02/20/18 05:30 Total Bilirubin 1.0 mg/dL (0.2-1.0) 02/17/18 12:00 AST 19 U/L (15-37) 02/17/18 12:00 ALT 32 U/L (12-78) 02/17/18 12:00 Alkaline Phosphatase 111 U/L (45-117) 02/17/18 12:00 Lipase 148 U/L (73-393) 02/17/18 12:00 Home Medications: Albuterol Sulfate [Proair Hfa] 8.5 gm IH TID PRN #1 hfa.aer.ad 02/20/18 Aspirin [Aspirin EC 81 MG] 81 mg PO DAILY #30 tablet.dr 02/20/18 Benzonatate [Tessalon Perle*] 100 mg PO TID PRN #15 cap 02/20/18 Levofloxacin [Levaquin] 500 mg PO DAILY #7 tablet 02/20/18 New Medications: Albuterol Sulfate [Proair Hfa] 8.5 gm IH TID PRN #1 hfa.aer.ad PRN Reason: Shortness Of Breath Aspirin [Aspirin EC 81 MG] 81 mg PO DAILY #30 tablet. Benzonatate [Tessalon Perle*] 100 mg PO TID PRN #15 cap PRN Reason: Cough Levofloxacin [Levaquin] 500 mg PO DAILY #7 tablet Patient Discharge Instructions: 1. Patient will need to establish care with a PCP to follow up this hospitalization. 2. Patient presented with cough, shortness of breath and fever. Patient evaluated in the emergency room. Patient found to have moderate to large right lower lobe pneumonia. Patient was admitted for treatment. Patient was not hypoxic. Initial influenza test and strep test unremarkable. During his stay antibiotics were adjusted. Blood cultures negative. Repeat x-ray shows stability. At discharge he is without any significant shortness of breath, cough. Patient ambulating well. At discharge he will continue with Levaquin 500 mg 1 pill daily for 7 days. Patient will also be prescribed Pro air 2 puffs 3 times a day as needed for shortness of breath and Tessalon Perles 100 mg 1 pill 3 times a day as needed for cough. Recommendation is for the patient to follow up with pulmonology in 1 -2 weeks to follow up this hospitalization. Recommendation to recheck chest x- ray in 2-4 weeks to monitor resolution. 3. CT scan also revealed 2 pulmonary nodules in the right lung field. This is likely related to the pneumonia. Recommendation to recheck CT scan in 3-6 months to monitor resolution. Recommendation for the patient follow up with pulmonology to further evaluate. 4. Patient had electrolyte abnormalities including hyponatremia and hypokalemia likely related to dehydration. This improved. Recommendation to recheck lab-BMP in 1 week to monitor his progress. 5. CT scan showed a 3 cm right inguinal mass secondary to a right undescended testicle. This has been present for quite some time as per patient. Recommendation is for the patient follow up with urology as an outpatient to further evaluate and treat. 6. Patient has fatty liver with obesity. BMI 40.7. Lifestyle modification education and weight loss recommended. Patient may follow up with GI as an outpatient to further monitor. 7. Tobacco and alcohol cessation education will be provided at discharge. 8. Patient may return to work after next Sunday Diet: AHA Activity: Ad domniic Time spent managing pt's care (in minutes): 55
[2018-02-20 13:14] VITALS: BP 119/66
== END 2018-02-20 15:22 | disposition home or self-care (01) | DRG 194 ==
LOC: ER 11:30 → INTOOBSV 15:36 → ERHOLD 15:36 → OBSVTOIN 15:36 → 2ND 16:28 → OBSVTOIN 02-18 11:35
PROVIDERS: ADMIT Family Medicine; ATTEND Family Medicine
DX: J18.9 Pneumonia, unspecified organism (principal); E87.1 Hypo-osmolality and hyponatremia; Z68.41 Body mass index [BMI] 40.0-44.9, adult; E86.0 Dehydration; R19.7 Diarrhea, unspecified; E87.6 Hypokalemia; N28.9 Disorder of kidney and ureter, unspecified; K76.0 Fatty (change of) liver, not elsewhere classified; Q53.9 Undescended testicle, unspecified; E66.9 Obesity, unspecified; F17.210 Nicotine dependence, cigarettes, uncomplicated
CPT/HCPCS: 36415; 71045; 71046; 71250; 74177; 80048; 80076; 81003; 83605; 83690; 83735; 84132; 84145; 84439; 84443; 85025; 86308; 87040; 87045; 87046; 87070; 87081; 87493; 87804; 99285; G0378; J0456; J0696; J1650; J2405; J7030; Q9967

== ENCOUNTER 2019-03-04 13:45 | Emergency (ER) | payer OTHER, SELFPAY ==
--- OUTSIDE RECORDS SUMMARY | 2019-03-04 13:49 | XMS REPORT ---
:1980 [facility] [address] [place] [address] Dr. Narayan [address] [place] [id number] Care Team Providers Name Role Phone Unavailable Unavailable Unavailable Problems This patient has no known problems. Allergies, Adverse Reactions, Alerts This patient has no known allergies or adverse reactions. Medications This patient has no known medications.
[2019-03-04] MEDS ORDERED: ALBUTEROL 2.5 MG/3 ML NEB SOL ONE (14:48)
[2019-03-04] MEDS ORDERED: predniSONE 20 MG TAB ONE (14:48)
[2019-03-04] MEDS ORDERED: IPRATROPIUM BROM 0.5MG/2.5ML ONE (14:48)
--- NOTE | 2019-03-04 16:05 | ER ---
Nurse's Notes [facility] Name: All Meyer Age: 39 yrs Sex: Male : 1980 Arrival Date: 03/04/2019 Time: 13:50 Bed 19 Private MD: Diagnosis: Pneumonia, unspecified organism Presentation: 03/04 14:01 Presenting complaint: Productive cough with greenish sputum, sore throat, headache, and hb subjective fever x 2 weeks, SOB and left low back pain x 2 days. Transition of care: patient was not received from another setting of care. Onset of symptoms was February 18, 2019. Risk Assessment: Do you want to hurt yourself or someone else? Patient reports no desire to harm self or others. Care prior to arrival: None. 14:01 Method Of Arrival: Ambulatory hb 14:01 Acuity: DEYA 3 hb 14:12 Initial Sepsis Screen: Does the patient meet any 2 criteria? No. Patient's initial tw2 sepsis screen is negative. Does the patient have a suspected source of infection? No. Patient's initial sepsis screen is negative. Triage Assessment: 14:14 General: Appears in no apparent distress. Respiratory: Onset: The symptoms/episode tw2 began/occurred 2 weeks, the patient has moderate shortness of breath. Historical: - Allergies: 14:03 No Known Allergies; hb - Home Meds: 14:03 None [Active]; hb - PMHx: 14:03 None; hb - PSHx: 14:03 None; hb - Immunization history:: Adult Immunizations up to date. - Social history:: Smoking status: Patient uses tobacco products, denies chronic smoking, but will smoke occasionally. - Ebola Screening: : No symptoms or risks identified at this time. Screenin:12 Abuse screen: Denies threats or abuse. Nutritional screening: No deficits noted. tw2 Tuberculosis screening: No symptoms or risk factors identified. Fall Risk None identified. Assessment: 14:13 General: Appears in no apparent distress. Behavior is calm, cooperative, appropriate tw2 for age. Pain: Denies pain. Neuro: Level of Consciousness is awake, alert, obeys commands, Oriented to person, place, time, situation. Cardiovascular: Heart tones S1 S2 Patient's skin is warm and dry. Rhythm is regular. Respiratory: Reports cough that is productive, Airway is patent Respiratory effort is even, unlabored, Respiratory pattern is regular, symmetrical, Breath sounds are clear. Respiratory: Reports shortness of breath. GI: No signs and/or symptoms were reported involving the gastrointestinal system. : No signs and/or symptoms were reported regarding the genitourinary system. EENT: Reports nasal congestion nasal discharge. Derm: No signs and/or symptoms reported regarding the dermatologic system. Musculoskeletal: Range of motion: intact in all extremities. 14:20 Reassessment: provider at bedside at this time. tw2 15:30 Reassessment: Patient appears in no apparent distress at this time. Patient and/or ca1 family updated on plan of care and expected duration. Pain level reassessed. Patient is alert, oriented x 3, equal unlabored respirations, skin warm/dry/pink. Patient states feeling better. 16:00 Reassessment: Patient appears in no apparent distress at this time. Patient is alert, ca1 oriented x 3, equal unlabored respirations, skin warm/dry/pink. 16:25 Reassessment: IM antibiotic given. Kept for any reaction to med. ca1 Vital Signs: 14:03 BP 132 / 76; Pulse 78; Resp 20; Temp 97.9; Pulse Ox 97% on R/A; Weight 129.27 kg; hb Height 5 ft. 7 in. (170.18 cm); Pain 7/10; 14:45 BP 115 / 82; Pulse 77; Resp 18 S; Pulse Ox 100% on Nebulizer Mask; ca1 15:30 BP 125 / 75; Pulse 81; Resp 20 S; Pulse Ox 98% on R/A; ca1 16:15 BP 102 / 73; Pulse 78; Resp 18; Pulse Ox 97% on R/A; ca1 14:03 Body Mass Index 44.64 (129.27 kg, 170.18 cm) hb ED Course: 13:50 Patient arrived in ED. mr 14:02 Triage completed. hb 14:03 Arm band placed on. hb 14:05 Bed in low position. Call light in reach. tw2 14:14 Marco Lopez NP is PHCP. pm1 14:14 Boo Gutierrez MD is Attending Physician. pm1 14:45 Hannah Cheema, BRYAN is Primary Nurse. ca1 15:28 Chest Pa And Lat (2 Views) XRAY In Process Unspecified. EDMS 16:43 No provider procedures requiring assistance completed. Patient did not have IV access ca1 during this emergency room visit. Administered Medications: 14:49 Drug: predniSONE 60 mg Route: PO; ca1 16:11 Follow up: Response: No adverse reaction; Marked relief of symptoms ca1 14:50 Drug: Albuterol - atroVENT (3:1) (2.5 mg - 0.5 mg) 3 ml Route: Nebulizer; ca1 16:11 Follow up: Response: No adverse reaction; Marked relief of symptoms ca1 16:12 Drug: Rocephin (cefTRIAXone) 1 grams Route: IM; Site: right gluteus; ca1 16:43 Follow up: Response: No adverse reaction ca1 Outcome: 16:05 Discharge ordered by . pm1 16:43 Discharged to home ambulatory, with significant other. ca1 16:43 Condition: stable 16:43 Discharge instructions given to patient, Instructed on discharge instructions, follow up and referral plans. medication usage, Demonstrated understanding of instructions, follow-up care, medications, Prescriptions given X 4. 16:43 Patient left the ED. ca1 Signatures: Dispatcher [employer] EDWA Betty Everett Patrick, INSURANCE VERIFICATION REPRESENTATIVE INSURANCE VERIFICATION REPRESENTATIVE pm1 Michlele Cat, RN RN Ning Padilla RN RN tw2 Hannah Cheema RN RN ca1
--- NOTE | 2019-03-04 16:06 | EDPHYS ---
Physician Documentation [facility] Name: All Meyer Age: 39 yrs Sex: Male : 1980 Arrival Date: 03/04/2019 Time: 13:50 Bed 19 Private MD: ED Physician Boo Gutierrez HPI: 03/04 14:59 This 39 yrs old Male presents to ER via Ambulatory with complaints of Cough, pm1 Breathing Difficulty. 14:59 The patient or guardian reports cough. pm1 14:59 Onset: The symptoms/episode began/occurred 2 week(s) ago. Severity of symptoms: in the pm1 emergency department the symptoms are actually worse. Modifying factors: The symptoms are alleviated by nebulizer treatment, the symptoms are aggravated by nothing. Associated signs and symptoms: Pertinent positives: left lower back pain, Pertinent negatives: fever. The patient has not recently seen a physician. Historical: - Allergies: 14:03 No Known Allergies; hb - Home Meds: 14:03 None [Active]; hb - PMHx: 14:03 None; hb - PSHx: 14:03 None; hb - Immunization history:: Adult Immunizations up to date. - Social history:: Smoking status: Patient uses tobacco products, denies chronic smoking, but will smoke occasionally. - Ebola Screening: : No symptoms or risks identified at this time. ROS: 14:59 Constitutional: Negative for fever, chills, and weight loss, Eyes: Negative for injury, pm1 pain, redness, and discharge, ENT: Negative for injury, pain, and discharge, Neck: Negative for injury, pain, and swelling, Cardiovascular: Negative for chest pain, palpitations, and edema. 14:59 Abdomen/GI: Negative for abdominal pain, nausea, vomiting, diarrhea, and constipation, Back: Negative for injury and pain, MS/Extremity: Negative for injury and deformity, Skin: Negative for injury, rash, and discoloration, Neuro: Negative for headache, weakness, numbness, tingling, and seizure. 14:59 Respiratory: Positive for cough, shortness of breath, wheezing, green sputum. Exam: 14:59 Constitutional: This is a well developed, well nourished patient who is awake, alert, pm1 and in no acute distress. Head/Face: Normocephalic, atraumatic. Eyes: Pupils equal round and reactive to light, extra-ocular motions intact. Lids and lashes normal. Conjunctiva and sclera are non-icteric and not injected. Cornea within normal limits. Periorbital areas with no swelling, redness, or edema. ENT: Nares patent. No nasal discharge, no septal abnormalities noted. Tympanic membranes are normal and external auditory canals are clear. Oropharynx with no redness, swelling, or masses, exudates, or evidence of obstruction, uvula midline. Mucous membranes moist. Neck: Trachea midline, no thyromegaly or masses palpated, and no cervical lymphadenopathy. Supple, full range of motion without nuchal rigidity, or vertebral point tenderness. No Meningismus. Chest/axilla: Normal chest wall appearance and motion. Nontender with no deformity. No lesions are appreciated. Cardiovascular: Regular rate and rhythm with a normal S1 and S2. No gallops, murmurs, or rubs. Normal PMI, no JVD. No pulse deficits. 14:59 Abdomen/GI: Soft, non-tender, with normal bowel sounds. No distension or tympany. No guarding or rebound. No evidence of tenderness throughout. Back: No spinal tenderness. No costovertebral tenderness. Full range of motion. Skin: Warm, dry with normal turgor. Normal color with no rashes, no lesions, and no evidence of cellulitis. MS/ Extremity: Pulses equal, no cyanosis. Neurovascular intact. Full, normal range of motion. 14:59 Respiratory: the patient does not display signs of respiratory distress, Respirations: normal, Breath sounds: decreased breath sounds, are heard in the left posterior upper lobe. 14:59 Neuro: Orientation: is normal, Motor: is normal, moves all fours. Vital Signs: 14:03 BP 132 / 76; Pulse 78; Resp 20; Temp 97.9; Pulse Ox 97% on R/A; Weight 129.27 kg; hb Height 5 ft. 7 in. (170.18 cm); Pain 7/10; 14:45 BP 115 / 82; Pulse 77; Resp 18 S; Pulse Ox 100% on Nebulizer Mask; ca1 15:30 BP 125 / 75; Pulse 81; Resp 20 S; Pulse Ox 98% on R/A; ca1 16:15 BP 102 / 73; Pulse 78; Resp 18; Pulse Ox 97% on R/A; ca1 14:03 Body Mass Index 44.64 (129.27 kg, 170.18 cm) hb MDM: 14:26 Patient medically screened. pm1 16:04 Data reviewed: vital signs. Data interpreted: Pulse oximetry: on room air is 100 %. pm1 Interpretation: normal. Counseling: I had a detailed discussion with the patient and/or guardian regarding: the historical points, exam findings, and any diagnostic results supporting the discharge/admit diagnosis, lab results, radiology results, the need for outpatient follow up, to return to the emergency department if symptoms worsen or persist or if there are any questions or concerns that arise at home. 03/04 14:48 Order name: Flu; Complete Time: 15:58 ph 03/04 14:48 Order name: Strep; Complete Time: 15:58 ph 03/04 14:48 Order name: Chest Pa And Lat (2 Views) XRAY; Complete Time: 17:19 ph 03/04 15:49 Order name: Throat Culture EDMS Administered Medications: 14:49 Drug: predniSONE 60 mg Route: PO; ca1 16:11 Follow up: Response: No adverse reaction; Marked relief of symptoms ca1 14:50 Drug: Albuterol - atroVENT (3:1) (2.5 mg - 0.5 mg) 3 ml Route: Nebulizer; ca1 16:11 Follow up: Response: No adverse reaction; Marked relief of symptoms ca1 16:12 Drug: Rocephin (cefTRIAXone) 1 grams Route: IM; Site: right gluteus; ca1 16:43 Follow up: Response: No adverse reaction ca1 Disposition: 21:23 Co-signature as Attending Physician, Boo Gutierrez MD. rn Disposition: 03/04/19 16:05 Discharged to Home. Impression: Pneumonia, unspecified organism. - Condition is Stable. - Discharge Instructions: Community-Acquired Pneumonia, Adult. - Prescriptions for Albuterol Sulfate 2.5 mg /3 mL (0.083 %) Inhalation Solution for Nebulization - inhale 1 unit by NEBULIZATION route every 8 hours As needed; 1 box. Zithromax Z- Faustino 250 mg Oral Tablet - take 1 tablet by ORAL route as directed for 5 days Day 1 - take two (2) tablets one time. Day 2, 3, 4 , 5 take one (1) tablet once daily.; 6 tablet. Albuterol Sulfate 90 mcg/actuation - inhale 1-2 puff by INHALATION route every 4-6 hours; 1 Inhaler. Guaifenesin AC 10- 100 mg/5 mL Oral Liquid - take 10 milliliter by ORAL route every 4 hours As needed; 240 milliliter. - Medication Reconciliation Form, Thank You Letter, Antibiotic Education, Prescription Opioid Use, Work release form form. - Follow up: Emergency Department; When: As needed; Reason: Worsening of condition. Follow up: Private Physician; When: 2 - 3 days; Reason: Recheck today's complaints, Continuance of care, Re-evaluation by your physician. - Problem is new. - Symptoms have improved. Signatures: Dispatcher [employer] EDMS Boo Gutierrez MD MD rn Maddie Nathan RN RN Marco Lopez, ISA DRAMATIC AGENT pm1 Michelle Cat, RN RN AcHannah morris RN RN ca1 Corrections: (The following items were deleted from the chart) 16:43 16:05 03/04/2019 16:05 Discharged to Home. Impression: Pneumonia, unspecified organism. ca1 Condition is Stable. Forms are Work release form, Medication Reconciliation Form, Thank You Letter, Antibiotic Education, Prescription Opioid Use. Follow up: Emergency Department; When: As needed; Reason: Worsening of condition. Follow up: Private Physician; When: 2 - 3 days; Reason: Recheck today's complaints, Continuance of care, Re-evaluation by your physician. Problem is new. Symptoms have improved. pm1
[2019-03-04] MEDS ORDERED: cloNIDine HCl 0.1 MG TAB ONE (16:07)
[2019-03-04] MEDS ORDERED: LIDOCAINE 1% MPF 2 ML AMPULE ONE (16:14)
[2019-03-04] MEDS ORDERED: CEFTRIAXONE 1000 MG/VIAL ONE (16:14)
--- NOTE | 2019-03-04 16:34 | RAD REPORT ---
EXAM DESCRIPTION: RAD - Chest Pa And Lat (2 Views) - 03/04/2019 3:29 pm CLINICAL HISTORY: COUGH, sore throat, headache COMPARISON: February 2018 TECHNIQUE: PA and lateral views of the chest were obtained. FINDINGS: The lungs are clear of a focal mass or consolidation. The large central consolidated mass seen in the right chest February 2018 has cleared. Baseline interstitial pattern is similar to compar hellen. Heart size is normal and central vasculature is within normal limits. No pleural effusion or pneumothorax seen. No acute bony finding noted. No aortic abnormality. IMPRESSION: No acute cardiopulmonary process.
[2019-03-04 16:59] VITALS: TEMP 97.9
[2019-03-04 17:03] VITALS: BP 102/73; O2SAT 97
== END 2019-03-04 16:43 | disposition home or self-care (01) ==
LOC: ER 13:45
DX: J18.9 Pneumonia, unspecified organism (principal); Z72.0 Tobacco use
CPT/HCPCS: 87070; 87081; 87804 ×2; 71046; 94640; 96372; 99284; J7512; J2001

== ENCOUNTER 2021-06-16 08:04 | Emergency (ER) | payer SELFPAY ==
--- OUTSIDE RECORDS SUMMARY | 2021-06-16 08:08 | XMS REPORT | Continuity of Care Document ---
:1980 Author Organization [facility] t Address [address] [place] [address] [address]. [address] [place] [address] Care Team Providers Name Role Phone Unavailable Unavailable Unavailable Problems This patient has no known problems. Allergies, Adverse Reactions, Alerts This patient has no known allergies or adverse reactions. Medications This patient has no known medications. Procedures This patient has no known procedures. Results This patient has no known results.
[2021-06-16] MEDS ORDERED: BUPIVACAINE 0.5% PF 10 ML VIAL ONE (08:49)
[2021-06-16] MEDS ORDERED: NA CHLORIDE 0.9% 1,000 ML ONE (09:26)
[2021-06-16] MEDS ORDERED: ASPIRIN 81 MG CHEWABLE TABLET ONE (09:26)
--- NOTE | 2021-06-16 10:10 | RAD REPORT ---
EXAM DESCRIPTION: RAD - Hand Right 3 View - 06/16/2021 9:25 am CLINICAL HISTORY: crush injury Pain and swelling COMPARISON: No comparisons FINDINGS: Soft tissue swelling affects the third finger. No fracture or foreign body.
--- NOTE | 2021-06-16 10:29 | EDPHYS ---
Physician Documentation [facility] Name: All Meyer Age: 41 yrs Sex: Male : 1980 Arrival Date: 06/16/2021 Time: 08:07 Bed 20 Private MD: ED Physician Ignacio Jaquez HPI: 06/16 08:10 This 41 yrs old Male presents to ER via Ambulatory with complaints of Finger jmm Injury. 08:10 The patient or guardian reports pain. Onset: The symptoms/episode began/occurred jmm acutely, just prior to arrival. Modifying factors: The symptoms are alleviated by nothing, the symptoms are aggravated by nothing. Associated signs and symptoms: Pertinent negatives: fever. This is a 41 year old male with no chronic medical conditions that presents to the ED with complaints of right 3rd finger pain after being smashed in the pipe at work. UTD on tetanus immunization. . Historical: - Allergies: 08:23 No Known Allergies; ll1 - PMHx: 08:23 None; ll1 - PSHx: 08:23 None; ll1 - Immunization history:: Client reports having NOT received the Covid vaccine. - Social history:: Smoking status: Patient reports the use of cigarette tobacco products, denies chronic smoking, but will smoke occasionally. ROS: 08:10 Constitutional: Negative for fever, chills, and weight loss, Cardiovascular: Negative jmm for chest pain, palpitations, and edema, Respiratory: Negative for shortness of breath, cough, wheezing, and pleuritic chest pain. 08:10 MS/extremity: Positive for laceration. 08:10 All other systems are negative. Exam: 08:10 Constitutional: This is a well developed, well nourished patient who is awake, alert, jmm and in no acute distress. Head/Face: atraumatic. Eyes: EOMI, no conjunctival erythema appreciated ENT: Moist Mucus Membranes Neck: Trachea midline, Supple Chest/axilla: Normal chest wall appearance and motion. Cardiovascular: Regular rate and rhythm. No edema appreciated Respiratory: Normal respirations, no respiratory distress appreciated Abdomen/GI: Non distended, soft Back: Normal ROM 08:10 Musculoskeletal/extremity: FROM noted to the right 3rd finger, < 2 sec dist cap refill, NVI. 08:10 Skin: laceration noted to the right distal index finger, . 08:10 Neuro: Orientation: is normal, Mentation: is normal, Memory: is normal. 08:10 Psych: Behavior/mood is pleasant, cooperative. Vital Signs: 08:23 BP 121 / 82; Pulse 78; Resp 17; Temp 97.0; Pulse Ox 97% ; Weight 127.01 kg; Height 5 ll1 ft. 7 in. (170.18 cm); Pain 9/10; 08:23 Body Mass Index 43.85 (127.01 kg, 170.18 cm) ll1 Laceration: 10:25 Wound Repair of 2cm ( 0.8in ) subcutaneous laceration to palmar aspect of distal jmm phalanx of right middle finger. Distal neuro/vascular/tendon intact. Anesthesia: Local anesthetic administered with 4 mls of 0.5% marcaine. Wound prep: Simple cleansing with betadine by me. Skin closed with 3 4-0 Prolene using simple sutures and sterile technique. Patient tolerated well. MDM: 08:10 Patient medically screened. [facility] 10:26 Data reviewed: vital signs, nurses notes. Counseling: I had a detailed discussion with serena the patient and/or guardian regarding: the historical points, exam findings, and any diagnostic results supporting the discharge/admit diagnosis, radiology results, the need for outpatient follow up, to return to the emergency department if symptoms worsen or persist or if there are any questions or concerns that arise at home. 06/16 08:13 Order name: Hand Right 3 View XRAY; Complete Time: 10:13 [facility] Administered Medications: 10:16 Drug: Marcaine (bupivacaine) (0.5 %) 10 ml Volume: 10 ml; Route: Infiltration; [place] Disposition Summary: 06/16/21 10:28 Discharge Ordered Location: Home [facility] Condition: Stable [facility] Diagnosis - Finger Laceration [facility] Followup: [facility] - With: Private Physician - When: 10 - 14 days - Reason: Recheck today's complaints, Continuance of care, Staple/Suture removal, Re-evaluation by your physician Discharge Instructions: - Discharge Summary Sheet [facility] - Laceration Care, Adult [facility] Forms: - Medication Reconciliation Form [facility] - Thank You Letter [facility] - Antibiotic Education [facility] - Prescription Opioid Use [facility] Signatures: Dispatcher [employer] EDIgnacio Mao MD MD cha Mickail, Joel, PA PA jmm Lewis, Lynsay, RN RN ll1 Andie-StagerMichelle RN RN spain Corrections: (The following items were deleted from the chart) 08:10 Skin: laceration noted to the left distal index finger, . serena lyons 08:10 Musculoskeletal/extremity: FROM noted to the left 3rd finger, < 2 sec dist cap serena refill, NVI. serena
--- NOTE | 2021-06-16 10:29 | ER ---
Nurse's Notes [facility] Name: All Meyer Age: 41 yrs Sex: Male : 1980 Arrival Date: 06/16/2021 Time: 08:07 Bed 20 Private MD: Diagnosis: Finger Laceration Presentation: 06/16 08:23 Chief complaint: Patient states: Crushed R hand 3rd digit between two pipes just [employer]. ll1 Laceration to tip of digit. Bleeding controlled. Coronavirus screen: Vaccine status: Patient reports being unvaccinated. Client denies travel out of the [place] in the last 14 days. At this time, the client does not indicate any symptoms associated with coronavirus-19. Ebola Screen: Patient denies travel to an Ebola-affected area in the 21 days before illness onset. Initial Sepsis Screen: Does the patient meet any 2 criteria? No. Patient's initial sepsis screen is negative. Does the patient have a suspected source of infection? Yes: Skin breakdown/wound. Risk Assessment: Do you want to hurt yourself or someone else? Patient reports no desire to harm self or others. Onset of symptoms was June 16, 2021. 08:23 Method Of Arrival: Ambulatory ll1 08:23 Acuity: DEYA 4 ll1 Triage Assessment: 08:16 General: Appears uncomfortable, Behavior is calm, cooperative, appropriate for age. ll1 Pain: Complains of pain in right hand. Musculoskeletal: Reports pain in right hand. Injury Description: Crush injury. Historical: - Allergies: 08:23 No Known Allergies; ll1 - PMHx: 08:23 None; ll1 - PSHx: 08:23 None; ll1 - Immunization history:: Client reports having NOT received the Covid vaccine. - Social history:: Smoking status: Patient reports the use of cigarette tobacco products, denies chronic smoking, but will smoke occasionally. Screenin:28 Abuse screen: Denies threats or abuse. Denies injuries from another. Nutritional spain screening: No deficits noted. Tuberculosis screening: No symptoms or risk factors identified. Fall Risk None identified. Assessment: 08:28 General: Appears in no apparent distress. Behavior is calm, cooperative. Pain: Denies spain pain. Complains of pain in dorsal aspect of distal phalanx of right middle finger, dorsal aspect of middle phalanx of right middle finger, dorsal aspect of proximal phalanx of right middle finger, palmar aspect of distal phalanx of right middle finger, palmar aspect of middle phalanx of right middle finger, palmar aspect of proximal phalanx of right middle finger and right middle fingernail. Injury Description: Crush injury sustained to dorsal aspect of distal phalanx of right middle finger, dorsal aspect of middle phalanx of right middle finger, dorsal aspect of proximal phalanx of right middle finger, palmar aspect of distal phalanx of right middle finger, palmar aspect of middle phalanx of right middle finger and palmar aspect of proximal phalanx of right middle finger. 10:54 Reassessment: [address] on pt right third finger. pt tolerated well. dress with spain bandaid. Vital Signs: 08:23 BP 121 / 82; Pulse 78; Resp 17; Temp 97.0; Pulse Ox 97% ; Weight 127.01 kg; Height 5 ll1 ft. 7 in. (170.18 cm); Pain 9/10; 08:23 Body Mass Index 43.85 (127.01 kg, 170.18 cm) 1 ED Course: 08:07 Patient arrived in ED. mr 08:08 Randy Fairchild PA is PHCP. [facility] 08:08 Ignacio Jaquez MD is Attending Physician. [facility] 08:15 Arm band placed on Patient placed in an exam room, on a stretcher. ll1 08:25 Triage completed. ll1 08:28 Patient has correct armband on for positive identification. [place]ain 08:28 No provider procedures requiring assistance completed. [place] 09:26 Hand Right 3 View XRAY In Process Unspecified. EDMS 10:55 Patient did not have IV access during this emergency room visit. [place] Administered Medications: 10:16 Drug: Marcaine (bupivacaine) (0.5 %) 10 ml Volume: 10 ml; Route: Infiltration; spain Outcome: 10:28 Discharge ordered by . [facility] 10:54 Discharged to home with family. [place] 10:54 Condition: good 10:54 Discharge instructions given to patient. 10:55 Patient left the ED. [place] Signatures: Dispatcher [employer] EDMS Randy Fairchild PA PA Betty Arechiga mr Davion Dubois RN RN 1 Au-Stager, Michelle, RN RN spain
[2021-06-16 11:10] VITALS: BP 121/82; TEMP 97; O2SAT 97
== END 2021-06-16 10:55 | disposition home or self-care (01) ==
LOC: ER 08:04
PROC: 0JQJ0ZZ Repair Right Hand Subcutaneous Tissue and Fascia, Open Approach (ICD-10-PCS; principal; 2021-06-16)
DX: S61.212A Laceration without foreign body of right middle finger without damage to nail, initial encounter (principal); F17.210 Nicotine dependence, cigarettes, uncomplicated; W22.8XXA Striking against or struck by other objects, initial encounter; Y92.89 Other specified places as the place of occurrence of the external cause; Y99.8 Other external cause status
CPT/HCPCS: 99283; J7030

== ENCOUNTER → 2023-07-03 | Emergency (ER) | payer SELFPAY ==
[~2023-07-03] MED LIST: NA CHLORIDE 0.9% 1,000 ML ONE
--- OUTSIDE RECORDS SUMMARY | 2023-07-03 22:18 | XMS REPORT | Continuity of Care Document ---
Author Name Unknown Address [address] [place] [address] [facility] Address 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 Name Role Phone Pcp, Patient Does Not Have A Primary Care Physic betty HIRAL DONOVAN Attending Clinician Unavailable Hiral Donovan MD Attending Clinician Problems Condition Name Condition Details Condition Category Status Onset Date Resolution Date Last Treatment Date Treating Clinician Comments Source No known active problems No known active problems Disease [facility] Allergies, Adverse Reactions, Alerts Allergy Name Allergy Type Status Severity Reaction(s) Onset Date Inactive Date Treating Clinician Comments Source NO KNOWN ALLERGIE S Drug Class Active [facility] Social History Social Habit Start Date Stop Date Quantity Comments Source Exposure to SARS-CoV-2 (event) 2021-11-19 00:00:00 2021-11-29 08:25:00 Not sure [facility] Alcohol intake 2021-11-29 00:00:00 2021-11-29 00:00:00 [facility] Cigarettes smoked current (pack per day) - Reported 2013-08-25 00:00:00 2013-08-25 00:00:00 [facility] Cigarette pack-years 2013-08-25 00:00:00 2013-08-25 00:00:00 [facility] Tobacco use and exposure 2013-08-25 00:00:00 2013-08-25 00:00:00 Former smokeless tobacco user [facility] History of tobacco use 2011-08-26 00:00:00 Snuff User [facility] Sex Assigned At 1980 00:00:00 1980 00:00:00 [facility] Smoking Status Start Date Stop Date Source Ex-smoker 2013-08-25 00:00:00 2013-08-25 00:00:00 [facility] Medications Ordered Medication Name Filled Medication Name Start Date Stop Date Current Medication? Ordering Clinician Indication Dosage Frequency Signature (SIG) Comments Components Source erythromyci n (ILOTYCIN) 5 mg/gram (0.5 %) ophthalmic ointment 0.5 Inch 11-29 13:45: 00 11-29 14:01 :00 No .5[in_u s] 0.5 Inch, Both Eyes, ONCE, 1 dose, On Sun11/29/21 at 0845, TARIK [facility] erythromyci n 5 mg/gram (0.5 %) ophthalmic ointment 11-29 00:00: 00 12-05 04:59 :00 No [id number] 9104 .5[in_u s] Place 0.5 Inches in both eyes in the morning and 0.5 Inches in the evening. Do all this for 5 days. Continue until you follow up with eye doctor. [facility] albuterol 90 mcg/actuati on inhaler 07-17 00:00: 00 Yes [id number] 2{puff} Inhale 2 Puffs every 4 (four) hours as needed for Wheezing or Shortness of Breath. [facility] albuterol 2.5 mg /3 mL (0.083 %) nebulizer solution 07-17 00:00: 00 Yes [id number] 2.5mg Inhale 3 mL every 4 (four) hours as needed for Wheezing or Shortness of Breath. [facility] azithromyci n (ZITHROMAX Z-RAMÍREZ) 250 mg tablet 07-17 00:00: 00 Yes [id number] 250mg Take 1 tablet by mouth SEE-INSTRU CTIONS. Take 500 mg day 1, then 250 mg days 2 to 5. [facility] benzonatate 100 mg capsule 07-17 00:00: 00 Yes [id number] 100mg Take 1 capsule by mouth 3 (three) times daily as needed for Cough. [facility] Vital Signs Vital Name Observation Time Observation Value Comments Donald thompson Systolic blood pressure 2021-11-29 13:23:00 145 mm[Hg] [facility] Diastolic blood pressure 2021-11-29 13:23:00 78 mm[Hg] [facility] Heart rate 2021-11-29 13:23:00 81 /min [facility] Body temperature 2021-11-29 13:23:00 36.56 Jazz [facility] Respiratory rate 2021-11-29 13:23:00 14 /min [facility] Body height 2021-11-29 13:23:00 170.2 cm [facility] Body weight 2021-11-29 13:23:00 131.543 kg [facility] BMI 2021-11-29 13:23:00 45.42 kg/m2 [facility] Oxygen saturation in Arterial blood by Pulse oximetry 2021-11-29 13:23:00 97 /min [facility] Procedures Procedure Date / Time Performed Performing Clinicia n Source NOTICE OF PRIVACY PRACTICES 2021-11-29 13:22:33 Doctor Unassigned, [place] [facility] CONSENT/REFUSAL FOR DIAGNOSIS AND TREATMENT 2021-11-29 13:21:13 Doctor Unassigned, [place] [facility] Encounters Start Date/Time End Date/Time Encounter Type Admission Type Attending Clinicians Care Facility Care Department Encounter ID Source 2021-11-29 08:28:00 2021-11-29 09:05:00 Emergency X HIRAL DONOVAN [facility] ERT [id number] [facility] 2021-11-29 08:28:00 2021-11-29 09:05:00 Emergency Hiral Donovan [facility] [id number] [facility]
[2023-07-03 22:53] LABS: Absolute Basophils 0.1 K/uL (0-0.5); Absolute Eosinophils 0.2 K/uL (0-0.5); Absolute Lymphocytes (CBC) 1.7 K/uL (0.7-4.9); Absolute Monocytes 0.6 K/uL (0.1-1.3); Absolute Neutrophil 5.5 K/uL (1.8-8.0); Eosinophils % 2.1 % (0-4.4); Hematocrit 44.6 % (39.6-49.0); Hemoglobin 15.2 g/dL (13.6-17.9); Lymphocytes % 21.5 % (15.3-44.8); MCH 30.5 pg (27.0-35.0); MCHC 34.1 g/dL (32.0-36.0); MCV 89.5 fL (80-100); MPV 8.8 fL (7.6-11.3); Monocytes % 6.9 % (3.3-12.3); Neutrophils % 68.5 % (41.7-73.7); Nucleated Red Blood Cells % 0.1 % (0-0); Platelets 214 thou/uL (152-406); RBC Red Blood Cell Count 4.99 M/uL (4.33-5.43); Red Cell Distribution Width 13.9 % (12.1-15.2)
[2023-07-03 22:55] LABS: PT Prothrombin Time 11.3 SECONDS (9.5-12.5); Protime INR 1.03
[2023-07-03 23:12] LABS: ALT/SGPT 24 U/L (16-61); AST/SGOT 14 U/L (15-37); Albumin 3.3 g/dL (3.4-5.0); Albumin/Globulin Ratio 0.8 (1.1-1.8); Alkaline Phosphatase 81 U/L (45-117); Anion Gap 11.1 mEq/L (5.0-15.0); BUN Blood Urea Nitrogen 16 mg/dL (7-18); Bicarbonate 26 mEq/L (21-32); Bilirubin Total 0.2 mg/dL (0.2-1.0); Glomerular Filtration Rate 89 ml/min (=/>90); Glucose Level 129 mg/dL (74-106); Magnesium 1.9 mg/dL (1.6-2.4); NT PRO-BNP 95 pg/mL (<125); Potassium 4.1 mEq/L (3.5-5.1); Protein, Total 7.3 g/dL (6.4-8.2); Sodium Level 137 mEq/L (136-145); Troponin High Sensitivity 4.4 pg/mL (<58.9)
[2023-07-03 23:18] LABS: Bilirubin Direct < 0.1 mg/dL (0-0.2); Bilirubin Indirect, Calculated ND mg/dL (0.2-0.8)
[2023-07-04 00:36] LABS: SARS-CoV-2 Antigen CONTROL BLUE LINE VIS/BG OK; SARS-CoV-2 Antigen Rapid Res Negative (Negative)
[2023-07-04 01:58] LABS: Specific Gravity 1.022 (1.005-1.030); Sqamous Epithelial None Seen /HPF (None Seen); Urine Bacteria None Seen /HPF (<20); Urine Bilirubin NEGATIVE (Negative); Urine Blood Negative (Negative); Urine Clarity Clear (Clear); Urine Color Light-Yellow (Yellow); Urine Culture Reflex Order NOT NEEDED; Urine Glucose NEGATIVE (Negative); Urine Ketones NEGATIVE (Negative); Urine Micro Reflex YN NO BILL MICROSCOPIC; Urine Mucus Slight /HPF (None Seen); Urine Nitrite NEGATIVE (Negative); Urine Protein NEGATIVE (Negative); Urine RBC None Seen /HPF (None Seen); Urine Urobilinogen Normal (Normal); Urine WBC None Seen /HPF (<5); Urine pH 5.5 (5.0-7.0)
--- NOTE | 2023-07-04 02:16 | ER ---
Nurse's Notes [facility] Name: All Meyer Age: 43 yrs Sex: Male : 1980 Arrival Date: 07/03/2023 Time: 22:16 Bed 20 Private MD: Diagnosis: Other fatigue;Generalized weakness, fatigue and malaise Presentation: 07/02 22:25 Chief complaint: Patient states: I have been feeling light headache, diarrhea, decrease ha1 appetite, and weakness. 22:25 Coronavirus screen: Vaccine status: Patient reports being unvaccinated. Ebola Screen: ha1 No symptoms or risks identified at this time. Initial Sepsis Screen: Does the patient meet any 2 criteria? No. Patient's initial sepsis screen is negative. Does the patient have a suspected source of infection? No. Patient's initial sepsis screen is negative. Risk Assessment: Do you want to hurt yourself or someone else? Patient reports no desire to harm self or others. Onset of symptoms was July 03, 2023. 22:25 Method Of Arrival: Ambulatory ha1 22:25 Acuity: DEYA 3 ha1 Triage Assessment: 22:25 General: Appears comfortable, Behavior is calm, cooperative. Pain: Complains of pain in ha1 pt. reports body aches. Pain: Pain currently is 5 out of 10 on a pain scale. EENT: No signs and/or symptoms were reported regarding the EENT system. Neuro: Level of Consciousness is awake, alert, obeys commands, Oriented to person, place, time, situation. Cardiovascular: Capillary refill < 3 seconds Patient's skin is warm and dry. Respiratory: Airway is patent Respiratory effort is even, unlabored, Respiratory pattern is regular, symmetrical. GI: Abdomen is round non-distended, obese, Bowel sounds present X 4 quads. Reports diarrhea. : No signs and/or symptoms were reported regarding the genitourinary system. Derm: Skin is pink, warm \T\ dry. Musculoskeletal: Circulation, motion, and sensation intact. Range of motion: intact in all extremities. Historical: - Allergies: 22:25 No Known Allergies; ha1 - PMHx: 22:25 Diabetes mellitus; ha1 - Immunization history:: Adult Immunizations not up to date. - Social history:: Smoking status: Patient reports the use of cigarette tobacco products, denies chronic smoking, but will smoke occasionally. - Family history:: not pertinent. Screenin:25 [facility] ED Fall Risk Assessment (Adult) History of falling in the last 3 months, ha1 including since admission No falls in past 3 months (0 pts) Confusion or Disorientation No (0 pts) Intoxicated or Sedated No (0 pts) Impaired Gait No (0 pts) Mobility Assist Device Used No (0 pt) Altered Elimination No (0 pt) Score/Fall Risk Level 0 - 2 = Low Risk Oriented to surroundings, Maintained a safe environment, Educated pt \T\ family on fall prevention, incl call for assistance when getting out of bed, Hourly rounding (assess needs \T\ fall precautionary measures) done. Abuse screen: Denies threats or abuse. Denies injuries from another. Nutritional screening: No deficits noted. Tuberculosis screening: No symptoms or risk factors identified. Assessment: 22:25 Reassessment: see triage assessment. ha1 23:30 Reassessment: Patient and/or family updated on plan of care and expected duration. Pain ha1 level reassessed. Patient is alert, oriented x 3, equal unlabored respirations, skin warm/dry/pink. 07/03 00:30 Reassessment: Patient and/or family updated on plan of care and expected duration. Pain ha1 level reassessed. Patient is alert, oriented x 3, equal unlabored respirations, skin warm/dry/pink. 01:52 Reassessment: Patient and/or family updated on plan of care and expected duration. Pain tm6 level reassessed. Patient is alert, oriented x 3, equal unlabored respirations, skin warm/dry/pink. 02:26 Reassessment: Patient and/or family updated on plan of care and expected duration. Pain tm6 level reassessed. Patient is alert, oriented x 3, equal unlabored respirations, skin warm/dry/pink. Vital Signs: 07/02 22:25 BP 121 / 69; Pulse 67; Resp 16 S; Temp 98.4; Pulse Ox 98% on R/A; Weight 108.86 kg; ha1 Height 5 ft. 7 in. ; 23:30 BP 105 / 62; Pulse 65; Resp 17 S; Pulse Ox 98% on R/A; ha1 07/03 00:30 BP 97 / 58; Pulse 64; Resp 17; Pulse Ox 98% on R/A; ha1 01:49 BP 106 / 61; Pulse 57; Pulse Ox 100% on R/A; tm6 02:25 BP 106 / 61; Pulse 61; Resp 19; Temp 97.1(TE); Pulse Ox 99% on R/A; Pain 0/10; tm6 07/02 22:25 Body Mass Index 37.59 (108.86 kg, 170.18 cm) ha1 02:25 Pain Scale: Adult tm6 [place] Coma Score: 00:35 Eye Response: spontaneous(4). Motor Response: obeys commands(6). Verbal Response: sp4 oriented(5). Total: 15. ED Course: 07/02 22:18 Patient arrived in ED. ra3 22:23 Noe Wasserman MD is Attending Physician. sp4 22:25 Patient has correct armband on for positive identification. Placed in gown. Bed in low ha1 position. Call light in reach. Side rails up X 1. Adult w/ patient. 22:25 Client placed on continuous cardiac and pulse oximetry monitoring. NIBP monitoring ha1 applied. monitoring analyst on. 22:25 Arm band placed on right wrist. ha1 22:25 EKG completed in triage. Results shown to MD. ha1 22:30 Door closed. Noise minimized. Warm blanket given. ha1 22:33 Inserted saline lock: 20 gauge in right antecubital area, using aseptic technique. ha1 Blood collected. 22:40 Basic Metabolic Panel Sent. ha1 22:40 CBC with Diff Sent. ha1 22:40 LFT's Sent. ha1 22:40 Magnesium Sent. ha1 22:40 NT PRO-BNP Sent. ha1 22:40 PT-INR Sent. ha1 22:40 Troponin HS Sent. ha1 22:40 T4 Free Sent. ha1 22:40 TSH Sent. ha1 22:55 XRAY Chest (1 view) In Process Unspecified. EDMS 22:56 Triage completed. ha1 23:21 Gayle Pimentel, BRYAN is Primary Nurse. ha1 07/03 02:15 Deonte Pfeiffer DO is Referral Physician. sp4 02:26 No provider procedures requiring assistance completed. IV discontinued, intact, tm6 bleeding controlled, No redness/swelling at site. Pressure dressing applied. 02:26 Provided Education on: follow up with PCP. tm6 Administered Medications: 07/02 22:47 Drug: NS 0.9% IV 1000 ml IV at 1 bolus Per protocol; 1000 mL bolus Route: IV; Rate: 1 ha1 bolus; Site: left antecubital; 23:15 Follow up: IV Status: Completed infusion; IV Intake: 1000ml tm6 Medication: 23:00 VIS not applicable for this client. ha1 Intake: 23:15 IV: 1000ml; Total: 1000ml. tm6 Outcome: 07/03 02:16 Discharge ordered by . josé miguel 02:26 Discharged to home ambulatory, with family, tm6 02:26 Condition: stable 02:26 Discharge instructions given to patient, family, Instructed on discharge instructions, follow up and referral plans. Demonstrated understanding of instructions, follow-up care, 02:27 Patient left the ED. tm6 Signatures: Dispatcher [employer] EDGayle Alexandre RN RN ha1 Noe Wasserman MD MD sp4 Radha Villegas RN RN tm6 Priscilla Groves ra3 Corrections: (The following items were deleted from the chart) 07/02 23:45 23:43 BP 105 / 62; Pulse 65bpm; Resp 17bpm; Spontaneous; Pulse Ox 98% RA; ha1 ha1
--- NOTE | 2023-07-04 02:16 | EDPHYS ---
Physician Documentation [facility] Name: All Meyer Age: 43 yrs Sex: Male : 1980 Arrival Date: 07/03/2023 Time: 22:16 Bed 20 Private MD: ED Physician Noe Wasserman HPI: 07/02 22:23 This 43 yrs old Male presents to ER via Unassigned with complaints of sp4 Fatigue,lightheaded,decreased in appetite,weakness. 07/03 00:35 43-year-old male presents with feeling unwell since yesterday associated with sp4 subjective fever, fatigue lightheadedness dizziness. Patient states in the past he was diagnosed with diabetes that is uncontrolled. . Historical: - Allergies: 07/02 22:25 No Known Allergies; ha1 - PMHx: 22:25 Diabetes mellitus; ha1 - Immunization history:: Adult Immunizations not up to date. - Social history:: Smoking status: Patient reports the use of cigarette tobacco products, denies chronic smoking, but will smoke occasionally. - Family history:: not pertinent. ROS: 07/03 00:35 Constitutional: Positive for subjective fever, fatigue, loss of appetite, generalized sp4 weakness Eyes: Negative for injury, pain, redness, and discharge, All other systems are negative, Exam: 00:34 ECG was reviewed by the Attending Physician. EKG 2139 normal sinus rhythm at the sp4 rate of 64. 00:35 Constitutional: This is a well developed, well nourished patient who is awake, alert, sp4 and in no acute distress. Head/Face: Normocephalic, atraumatic. Eyes: Pupils equal round and reactive to light, extra-ocular motions intact. Lids and lashes normal. Conjunctiva and sclera are not injected. Cornea within normal limits. Periorbital areas with no swelling, redness, or edema. ENT: Nares patent. No nasal discharge, no septal abnormalities noted. Tympanic membranes are normal and external auditory canals are clear. Oropharynx with no redness, swelling, or masses, exudates, or evidence of obstruction, uvula midline. Mucous membranes moist. Neck: Trachea midline, no thyromegaly or masses palpated, and no cervical lymphadenopathy. Supple, full range of motion without nuchal rigidity, or vertebral point tenderness. Chest/axilla: Normal chest wall appearance and motion. Nontender with no deformity. No lesions are appreciated. Cardiovascular: Regular rate and rhythm with a normal S1 and S2. No gallops, murmurs, or rubs. Normal PMI, no JVD. No pulse deficits. Respiratory: Lungs have equal breath sounds bilaterally, clear to auscultation and percussion. No rales, rhonchi or wheezes noted. No increased work of breathing, no retractions or nasal flaring. Abdomen/GI: Soft, with normal bowel sounds. No distension or tympany. No guarding or rebound. No evidence of tenderness throughout. Back: No spinal tenderness. No costovertebral tenderness. Skin: Warm, dry with normal turgor. Normal color with no rashes, no lesions, and no evidence of cellulitis. MS/ Extremity: Pulses equal, no cyanosis. Neurovascular intact. Full, normal range of motion. Neuro: Awake and alert, GCS 15, oriented to person, place, time, and situation. Cranial nerves II-XII grossly intact. Motor strength 5/5 in all extremities. Sensory grossly intact. Psych: Awake, alert, with orientation to person, place and time. Behavior, mood, and affect are within normal limits Vital Signs: 07/02 22:25 BP 121 / 69; Pulse 67; Resp 16 S; Temp 98.4; Pulse Ox 98% on R/A; Weight 108.86 kg; ha1 Height 5 ft. 7 in. ; 23:30 BP 105 / 62; Pulse 65; Resp 17 S; Pulse Ox 98% on R/A; ha1 07/03 00:30 BP 97 / 58; Pulse 64; Resp 17; Pulse Ox 98% on R/A; ha1 01:49 BP 106 / 61; Pulse 57; Pulse Ox 100% on R/A; tm6 02:25 BP 106 / 61; Pulse 61; Resp 19; Temp 97.1(TE); Pulse Ox 99% on R/A; Pain 0/10; tm6 07/02 22:25 Body Mass Index 37.59 (108.86 kg, 170.18 cm) ha1 02:25 Pain Scale: Adult tm6 [place] Coma Score: 00:35 Eye Response: spontaneous(4). Motor Response: obeys commands(6). Verbal Response: sp4 oriented(5). Total: 15. MDM: 07/02 22:40 Patient medically screened. [facility] 07/03 00:37 Differential Diagnosis altered mental status, sepsis, flu. Data reviewed: vital signs, sp4 nurses notes, lab test result(s), EKG, radiologic studies, plain films. ED course: EXAM: XR Chest, 1 View CLINICAL HISTORY: CHEST PAIN TECHNIQUE: Frontal view of the chest. COMPARISON: No relevant prior studies available. FINDINGS: Lungs: Unremarkable. No consolidation. Pleural space: Unremarkable. No pneumothorax. Heart: Unremarkable. No cardiomegaly. Mediastinum: Unremarkable. Normal mediastinal contour. Bones/joints: Unremarkable. No acute fracture. Vasculature: Thoracic aortic atherosclerosis. IMPRESSION: No acute disease. . 07/02 22:25 Order name: SARS RAPID; Complete Time: 00:36 [facility] 07/02 22:25 Order name: Influenza Screen (a \T\ B); Complete Time: 00:36 [facility] 07/02 22:30 Order name: Basic Metabolic Panel; Complete Time: 00:34 [facility] 07/02 22:30 Order name: CBC with Diff; Complete Time: 00:34 [facility] 07/02 22:30 Order name: LFT's; Complete Time: 00:34 [facility] 07/02 22:30 Order name: Magnesium; Complete Time: 00:34 [facility] 07/02 22:30 Order name: NT PRO-BNP; Complete Time: 00:34 [facility] 07/02 22:30 Order name: PT-INR; Complete Time: 00:34 [facility] 07/02 22:30 Order name: Troponin HS; Complete Time: 00:34 [facility] 07/02 22:30 Order name: Hemoglobin A1c [facility] 07/02 22:30 Order name: TSH; Complete Time: 00:34 [facility] 07/02 22:30 Order name: T4 Free; Complete Time: 00:34 [facility] 07/02 22:43 Order name: Glucose, Ancillary Testing; Complete Time: 00:34 EDCT 07/03 00:34 Order name: Urinalysis W/Microscopic; Complete Time: 02:15 [facility] 07/02 22:30 Order name: XRAY Chest (1 view) [facility] 07/02 22:30 Order name: EKG; Complete Time: 22:30 [facility] 07/02 22:30 Order name: Cardiac monitoring; Complete Time: 22:40 [facility] 07/02 22:30 Order name: EKG - Nurse/Tech; Complete Time: :40 sp4 07/02 22:30 Order name: IV Saline Lock; Complete Time: :40 sp4 07/02 22:30 Order name: Labs collected and sent; Complete Time: :40 sp4 07/02 22:30 Order name: O2 Per Protocol; Complete Time: :40 sp4 07/02 22:30 Order name: O2 Sat Monitoring; Complete Time: :40 sp4 EC:34 Rate is 64 beats/min. Rhythm is regular, Normal Sinus Rhythm. QRS [place] is Normal. [place] sp4 interval is normal. QRS interval is normal. QT interval is normal. No Q waves. T waves are Normal. No ST changes noted. Clinical impression: Normal ECG. Interpreted by me. Reviewed by me. Administered Medications: 07/02 22:47 Drug: NS 0.9% IV 1000 ml IV at 1 bolus Per protocol; 1000 mL bolus Route: IV; Rate: 1 ha1 bolus; Site: left antecubital; 23:15 Follow up: IV Status: Completed infusion; IV Intake: 1000ml tm6 Disposition Summary: 07/04/23 02:16 Discharge Ordered Problem: new sp4 Symptoms: have improved sp4 Condition: Stable sp4 Diagnosis - Other fatigue sp4 - Generalized weakness, fatigue and malaise sp4 Followup: sp4 - With: Deonte Pfeiffer DO - When: 7 - 10 days - Reason: Recheck today's complaints Discharge Instructions: - Discharge Summary Sheet sp4 - Weakness, [id number] sp4 Forms: - Patient Portal Instructions sp4 - Work release form tm6 Signatures: Dispatcher [employer] Gayle Griffith RN RN ha1 Noe Wasserman MD MD sp4 Radha Villegas RN tm6
[2023-07-04 03:29] VITALS: BP 106/61; TEMP 97.1; O2SAT 99
--- NOTE | 2023-07-04 13:53 | RAD REPORT ---
EXAM DESCRIPTION: RAD - Chest Single View - 07/03/2023 10:53 pm CLINICAL HISTORY: CHEST PAIN TECHNIQUE: Frontal view of the chest. COMPARISON: No relevant prior studies available. FINDINGS: Lungs: Unremarkable. No consolidation. Pleural space: Unremarkable. No pneumothorax. Heart: Unremarkable. No cardiomegaly. Mediastinum: Unremarkable. Normal mediastinal contour. Bones/joints: Unremarkable. No acute fracture. Vasculature: Thoracic aortic atherosclerosis. IMPRESSION: No acute disease. Electronically signed by: Gabriel Lambert MD 07/03/2023 11:19 PM CDT Due to temporary technical issues with the PACS/Fluency reporting system, reports are being signed by the in house radiologist without review as a courtesy to ensure prompt reporting. The interpreting r adiologist is fully responsible for the content of the report.
== END ==
LOC: ER 22:16
DX: R53.83 Other fatigue (principal); R53.1 Weakness; R53.81 Other malaise; F17.210 Nicotine dependence, cigarettes, uncomplicated; Z11.52 Encounter for screening for COVID-19
CPT/HCPCS: 36415; 71045; 80048; 80076; 82947; 83735; 83880; 84439; 84443; 84484; 85025; 85610; 87804; 87811; 93005; J7030

== ENCOUNTER 2025-01-19 23:47 | Emergency (ER) | payer OTHER ==
[2025-01-20] MEDS ORDERED: TDAP (DIPHTH,PERTUSS(ACELL),TET VAC) 0.5 ML VIAL IMVAC ONE (00:02)
[2025-01-20] MEDS ORDERED: LIDOCAINE 1% MPF 5 ML VIAL ONE (00:02)
--- NOTE | 2025-01-20 00:30 | EDPHYS ---
Physician Documentation [facility] Name: All Meyer Age: 44 yrs Sex: Male : 1980 Arrival Date: 01/19/2025 Time: 23:47 Bed 19 Private MD: ED Physician Noe Wasserman HPI: 01/20 00:00 This 44 yrs old Male presents to ER via Unassigned with complaints of Lac to sb4 finger from a knife. 00:00 The patient has a laceration related to:. Patient states that he was using a knife to sb4 try to take a part of his vape when he accidentally cut his left pointer finger, sustaining a laceration. States it is still bleeding mildly. Has no other complaints at this time. Historical: - PMHx: 00:05 diabetes mellitus; kb4 - Immunization history:: Adult Immunizations unknown, Last tetanus immunization: < 10 years ago. - Infectious Disease History:: Denies. - Social history:: Smoking status: Patient denies any tobacco usage or history of. ROS: 00:00 Constitutional: Negative for fever, chills, and weight loss, sb4 00:00 Skin: Positive for laceration(s), of the palmar aspect of proximal phalanx of left index finger, Exam: 00:01 Constitutional: This is a well developed, well nourished patient who is awake, alert, sb4 and in no acute distress. Head/Face: Normocephalic, atraumatic. Eyes: Extra-ocular motions intact. Periorbital areas with no swelling, redness, or edema. ENT: Mucous membranes moist. Respiratory: No increased work of breathing, no retractions or nasal flaring. 00:30 Skin: injury, laceration(s), the wound is approximately 2.5 cm(s), with a depth of .5 sb4 cm(s), of the palmar aspect of proximal phalanx of left index finger, that can be described as clean, no foreign body, irregular, with mild bleeding, Vital Signs: 00:04 BP 109 / 59; Pulse 50; Resp 18; Temp 97.9; Pulse Ox 96% ; Weight 127.01 kg; Height 5 kb4 ft. 7 in. ; Pain 5/10; 00:46 BP 100 / 66; Pulse 52; Resp 18; Pulse Ox 97% ; cp4 00:04 Body Mass Index 43.85 (127.01 kg, 170.18 cm) kb4 00:04 Pain Scale: Adult kb4 Laceration: 00:30 Wound Repair of 2.5cm ( 1.0in ) subcutaneous laceration to palmar aspect of proximal sb4 phalanx of left index finger. Irregularly shaped.. Distal neuro/vascular/tendon intact. Anesthesia: Local anesthetic administered with 4 mls of 1% lidocaine. Wound prep: Moderate cleansing with hibiclenz by me, Extensive cleansing, Wound irrigation with saline by me, Wound explored, Copious irrigation. Skin closed with 3 5-0 Prolene using simple sutures and sterile technique. Dressed with non-adherent dressing. Patient tolerated well. MDM: 01/19 23:54 Medical Screening Exam initiated sb4 01/20 00:30 Differential diagnosis: superficial laceration, tendon injury, vascular injury. Data sb4 reviewed: vital signs, nurses notes, and as a result, I will discharge patient. Counseling: I had a detailed discussion with the patient and/or guardian regarding the historical points, exam findings, and any diagnostic results supporting the discharge/admit diagnosis, the need for outpatient follow up, for suture removal in 1 week, to return to the emergency department if symptoms worsen or persist or if there are any questions or concerns that arise at home. Administered Medications: 00:19 Drug: Boostrix Tdap IM 0.5 ml IM once; as a single dose Route: IM; Site: right deltoid; cp4 00:47 Follow up: Response: No adverse reaction cp4 00:19 Drug: Lidocaine Infiltration (1 %) 5 ml 5 ml Infiltration once; to bedside {Note: cp4 Administered by provider.} Volume: 5 ml; Route: Infiltration; Disposition: 23:10 Co-signature as Attending Physician, Noe Wasserman MD I agree with the assessment sp4 and plan of care. I reviewed the patient's care provided by the Advanced Practice Provider and agree with the diagnosis and treatment plan. Disposition Summary: 01/20/25 00:29 Discharge Ordered Notes: Location: Home sb4 Problem: new sb4 Symptoms: have improved sb4 Condition: Stable sb4 Diagnosis - Laceration without foreign body of left index finger without damage to nail sb4 Followup: sb4 - With: Private Physician - When: 1 week - Reason: Staple/Suture removal Discharge Instructions: - Discharge Summary Sheet sb4 - Laceration Care, Adult, [id number] sb4 Forms: - Patient Portal Instructions sb4 - Leadership Thank You Letter sb4 Signatures: Sue Holland, PAUL MILLER sb4 Noe Wasserman MD MD sp4 Shazia Damon cp4 Sarah Figueroa RN RN kb4
--- NOTE | 2025-01-20 00:30 | ER ---
Nurse's Notes [facility] Name: All Meyer Age: 44 yrs Sex: Male : 1980 Arrival Date: 01/19/2025 Time: 23:47 Bed 19 Private MD: Diagnosis: Laceration without foreign body of left index finger without damage to nail Presentation: 01/20 00:04 Chief complaint: Patient states: pt reports playing with knife, LAC to L thumb. kb4 Coronavirus screen: At this time, unable to obtain information related to travel outside the [place] Ebola Screen: No symptoms or risks identified at this time. Initial Sepsis Screen: Does the patient meet any 2 criteria? No. Patient's initial sepsis screen is negative. Does the patient have a suspected source of infection? No. Patient's initial sepsis screen is negative. Risk Assessment: Do you want to hurt yourself or someone else? Patient reports no desire to harm self or others. Onset of symptoms was January 20, 2025. 00:04 Method Of Arrival: Ambulatory kb4 00:04 Acuity: DEYA 3 kb4 Triage Assessment: 00:05 General: Appears in no apparent distress. comfortable, Behavior is calm, cooperative. kb4 Pain: Complains of pain in left hand, thumb. 00:05 Injury Description: Laceration sustained to left hand is clean, bleeding moderately, kb4 was sustained less than 30 minutes ago. moderate bleeding noted at this time. Historical: - PMHx: 00:05 diabetes mellitus; kb4 - Immunization history:: Adult Immunizations unknown, Last tetanus immunization: < 10 years ago. - Infectious Disease History:: Denies. - Social history:: Smoking status: Patient denies any tobacco usage or history of. Screenin:10 [facility] ED Fall Risk Assessment (Adult) History of falling in the last 3 months, cp4 including since admission No falls in past 3 months (0 pts) Confusion or Disorientation No (0 pts) Intoxicated or Sedated No (0 pts) Impaired Gait No (0 pts) Mobility Assist Device Used No (0 pt) Altered Elimination No (0 pt) Score/Fall Risk Level 0 - 2 = Low Risk Oriented to surroundings, Maintained a safe environment, Assessed \T\ reinforced patient's understanding of fall precautions, Hourly rounding (assess needs \T\ fall precautionary measures) done. Abuse screen: Denies threats or abuse. Denies injuries from another. Nutritional screening: No deficits noted. Tuberculosis screening: No symptoms or risk factors identified. Never had TB. Assessment: 00:10 General: Appears in no apparent distress. comfortable, Behavior is calm, cooperative, cp4 appropriate for age. 00:10 Pain: Complains of pain in left hand and palmar aspect of proximal phalanx of left cp4 index finger Pain does not radiate. Pain currently is 5 out of 10 on a pain scale. Neuro: Level of Consciousness is awake, alert, obeys commands, Oriented to person, place, time, situation. Cardiovascular: Patient's skin is warm and dry. Respiratory: Airway is patent Respiratory effort is even, unlabored. GI: No signs and/or symptoms were reported involving the gastrointestinal system. : No signs and/or symptoms were reported regarding the genitourinary system. EENT: No signs and/or symptoms were reported regarding the EENT system. Derm: No signs and/or symptoms reported regarding the dermatologic system. Musculoskeletal: No signs and/or symptoms reported regarding the musculoskeletal system. Injury Description: Laceration sustained to left hand and palmar aspect of proximal phalanx of left index finger is clean, was sustained less than 30 minutes ago. moderate bleeding noted at this time. Vital Signs: 00:04 BP 109 / 59; Pulse 50; Resp 18; Temp 97.9; Pulse Ox 96% ; Weight 127.01 kg; Height 5 kb4 ft. 7 in. ; Pain 5/10; 00:46 BP 100 / 66; Pulse 52; Resp 18; Pulse Ox 97% ; cp4 00:04 Body Mass Index 43.85 (127.01 kg, 170.18 cm) kb4 00:04 Pain Scale: Adult kb4 ED Course: 01/19 23:51 Patient arrived in ED. gm2 23:54 Sue Holland PA-C is PHCP. sb4 23:54 Noe Wasserman MD is Attending Physician. sb4 23:57 Shazia Damon is Primary Nurse. cp4 01/20 00:05 Triage completed. kb4 00:10 Bed in low position. Call light in reach. Side rails up X 1. cp4 00:10 Assist provider with laceration repair on left hand and palmar aspect of proximal cp4 phalanx of left index finger that was 2.5 cm. or less using sutures. Set up tray. Performed by Sue Holland PA-C Dressed with Kerlix, Patient tolerated well. 00:47 Provided Education on: laceration repair. cp4 00:47 Patient did not have IV access during this emergency room visit. cp4 00:49 Arm band placed on right wrist. Patient placed in waiting room. cp4 Administered Medications: 00:19 Drug: Boostrix Tdap IM 0.5 ml IM once; as a single dose Route: IM; Site: right deltoid; cp4 00:47 Follow up: Response: No adverse reaction cp4 00:19 Drug: Lidocaine Infiltration (1 %) 5 ml 5 ml Infiltration once; to bedside {Note: cp4 Administered by provider.} Volume: 5 ml; Route: Infiltration; Medication: 00:10 Vaccine Information Statement (VIS) provided today. Questions and/or concerns cp4 addressed. VIS edition date: November 19, 2020. Outcome: 00:29 Discharge ordered by MD. sb4 00:47 Discharged to home ambulatory, cp4 00:47 Condition: stable 00:47 Discharge instructions given to patient, family, Instructed on discharge instructions, follow up and referral plans. wound care, Demonstrated understanding of instructions, follow-up care, wound care, 00:49 Patient left the ED. cp4 Signatures: Sue Holland PA-C PA-C sb4 Shazia Damon cp4 Beryl Simpson gm2 Sarah Figueroa, RN RN kb4
[2025-01-20 00:57] VITALS: TEMP 97.9
[2025-01-20 00:58] VITALS: BP 100/66; O2SAT 97
== END 2025-01-20 00:49 | disposition home or self-care (01) ==
LOC: ER 23:47
DX: S61.211A Laceration without foreign body of left index finger without damage to nail, initial encounter (principal); W26.0XXA Contact with knife, initial encounter; Z23 Encounter for immunization
CPT/HCPCS: 90715; 96372; 99284; 12041; J2003